=== PATIENT | female | born 1975 | race Caucasian/White ===

== ENCOUNTER 2017-01-13 14:08 | Emergency (ER) | payer BC ==
[2017-01-13] MEDS ORDERED: cloNIDine 0.1 MG Tab PO ONE (14:39)
[2017-01-13] MEDS ORDERED: Ketorolac 60 MG/2 ML SDV IM ONE (14:39)
[2017-01-13] MEDS ORDERED: Morphine 10 MG/ML Syringe IM ONE (15:15)
[2017-01-13 15:36] LABS: CHLORIDE,CL 110 mmol/L (98-110); SODIUM,NA 142 mmol/L (136-146)
--- NOTE | 2017-01-13 16:04 | EDM.PDOC ---
ED HPI GENERAL MEDICAL PROBLEM - General Chief Complaint: Headache Stated Complaint: MIGRAINE Time Seen by Provider: 01/13/17 14:31 Source of Information: Reports: Patient History Limitations: Reports: No limitations - History of Present Illness INITIAL COMMENTS - FREE TEXT/NARRATIVE: History of present illness: [] Patient has a history of high blood pressure and migraine headaches and states she developed a typical migraine headache last night. She states it feels more severe but it feels like a migraine. She denies any fevers or chills , vomiting, sinus congestion or visual changes. Review of systems: As per history of present illness and below otherwise all systems reviewed and negative. Past medical history: As per history of present illness and as reviewed below otherwise noncontributory. Surgical history: As per history of present illness and as reviewed below otherwise noncontributory. Social history: No reported history of drug or alcohol abuse. Family history: As per history of present illness and as reviewed below otherwise noncontributory. Physical exam: General: Well developed, well nourished in NAD HEENT: Atraumatic, normocephalic, pupils reactive, negative for conjunctival pallor or scleral icterus, mucous membranes moist, throat clear, neck supple, nontender, trachea midline. Lungs: Clear to auscultation, breath sounds equal bilaterally, chest nontender. Heart: S1S2, regular, negative for clicks, rubs, or JVD. Abdomen: Soft, nondistended, nontender. Negative for masses or hepatosplenomegaly. Negative for costovertebral tenderness. Pelvis: Stable nontender. Genitourinary: Deferred. Rectal: Deferred. Extremities: Atraumatic, negative for cords or calf pain. Neurovascular unremarkable. Neuro: Awake, alert, oriented. Cranial nerves II through XII unremarkable. Cerebellum unremarkable. Motor and sensory unremarkable throughout. Exam nonfocal. Diagnostics: [] Therapeutics: [] Patient was given Toradol and clonidine to decrease her blood pressure with no relief and asked for morphine. Impression: [] Migraine headache Plan: [] Followup PMD Definitive disposition and diagnosis as appropriate pending reevaluation and review of above. Headache Pain Score (Numeric/FACES): 8 - Related Data Allergies Allergy/AdvReac Type Severity Reaction Status Date / Time venom-honey bee Allergy Anaphylactic Verified 01/13/17 14:30 [bee venom (honey bee)] Shock venom-wasp [Wasp Venom] Allergy Anaphylactic Verified 01/13/17 14:30 Shock Home Meds: Home Meds Verapamil HCl [Verapamil] 180 mg PO DAILY 12/13/13 [History] ARIPiprazole [Aripiprazole] 10 mg PO DAILY 01/13/17 [History] Acetaminophen/Butalbital/Caff [Fioricet 325-50-40 MG] 1 - 2 tab PO Q4H PRN 01/13 [History] ClonazePAM [KlonoPIN] 0.5 mg PO BEDTIME 01/13/17 [History] Cyanocobalamin/FA/Pyridoxine [Folbic Tablet] 1 tab PO DAILY 01/13/17 [History] Ketorolac [Toradol] 10 mg PO BID PRN 01/13/17 [History] Lurasidone HCl [Latuda] 40 mg PO QAM 01/13/17 [History] Metoclopramide [Reglan] 10 mg PO Q6H PRN 01/13/17 [History] Naratriptan HCl 2.5 mg PO ASDIRECTED PRN 01/13/17 [History] Ondansetron [IJP: Ondansetron ODT] 4 mg PO TID PRN 01/13/17 [History] Topiramate 50 mg PO BID 01/13/17 [History] cloNIDine HCl [Catapres] 0.2 mg PO BEDTIME 01/13/17 [History] traZODone 50 mg PO BEDTIME 01/13/17 [History] Past Medical History - Past Health History Medical/Surgical History: Denies Medical/Surgical History Psychiatric History: Reports: Anxiety, Depression, Other (see below) Other Psychiatric History: insomnia - Infectious Disease History Infectious Disease History: Reports: Chicken pox - Past Surgical History Female Surgical History: Reports: Breast reduction, section, Hysterectomy Social & Family History - Family History Family Medical History: Noncontributory - Tobacco Use Smoking Status *Q: Never Smoker Second Hand Smoke Exposure: No - Alcohol Use Days Per Week of Alcohol Use: 7 Number of Drinks Per Day: 1 Total Drinks Per Week: 7 - Recreational Drug Use Recreational Drug Use: No Drug Use in Last 12 Months: No ED ROS GENERAL - Review of Systems Review Of Systems: See Below (See history of present illness) - Physical Exam Exam: See Below (See history of present illness) Course - Vital Signs Last Recorded V/S: Last Vital Signs Temp 36.5 C 01/13/17 14:27 Pulse 83 01/13/17 16:41 Resp 16 01/13/17 16:41 BP 133/61 01/13/17 16:41 Pulse Ox 99 01/13/17 16:41 - Orders/Labs/Meds Labs: Laboratory Tests 01/13/17 Range/Units 15:06 Sodium 142 (136-146) mmol/L Potassium 3.9 (3.5-5.1) mmol/L Chloride 110 (98-110) mmol/L Carbon Dioxide 22 (21-31) mmol/L BUN 14 (6.0-23.0) mg/dL Creatinine 1.0 (0.6-1.5) mg/dL Est Cr Clr Drug Dosing 54.74 mL/min Estimated GFR (MDRD) > 60.0 ml/min Glucose 94 (60-110) mg/dL Calcium 9.7 (8.8-10.8) mg/dL Total Bilirubin 0.2 (0.1-1.5) mg/dL AST 21 (5-40) IU/L ALT 19 (8-54) IU/L Alkaline Phosphatase 96 (40-150) Total Protein 7.4 (6.0-8.0) g/dL Albumin 4.2 (3.5-5.0) g/dL Globulin 3.2 (2.0-3.5) g/dL Albumin/Globulin Ratio 1.3 (1.3-2.8) Meds: Medications Discontinued Medications Generic Name Dose Route Start Last Admin Trade Name [place] PRN Reason Stop Dose Admin Clonidine HCl 0.2 mg 01/13/17 14:39 01/13/17 14:47 Catapres PO 01/13/17 14:40 0.2 mg ONETIME ONE Administration Ketorolac Tromethamine 60 mg 01/13/17 14:39 01/13/17 14:46 Toradol IM 01/13/17 14:40 60 mg ONETIME ONE Administration Morphine Sulfate 6 mg 01/13/17 15:15 01/13/17 15:31 Morphine IM 01/13/17 15:16 6 mg ONETIME ONE Administration Morphine Sulfate 4 mg 01/13/17 16:07 01/13/17 16:28 Morphine IM 01/13/17 16:08 4 mg ONETIME ONE Administration Departure - Departure Time of Disposition: 17:00 Disposition: Home, Self-Care 01 Condition: good Clinical Impression: Headache Qualifiers: Headache type: unspecified Headache chronicity pattern: unspecified pattern Intractability: not intractable Qualified Code(s): R51 - Headache - Discharge Information Forms: ED Department Discharge Additional Instructions: The following information is given to patients seen in the emergency department who are being discharged to home. This information is to outline your options for follow-up care. We provide all patients seen in our emergency department with a follow-up referral. The need for follow-up, as well as the timing and circumstances, are variable depending upon the specifics of your emergency department visit. If you don't have a primary care physician on staff, we will provide you with a referral. We always advise you to contact your personal physician following an emergency department visit to inform them of the circumstance of the visit and for follow-up with them and/or the need for any referrals to a consulting specialist. The emergency department will also refer you to a specialist when appropriate. This referral assures that you have the opportunity for follow-up care with a specialist. All of these measure are taken in an effort to provide you with optimal care, which includes your follow-up. Under all circumstances we always encourage you to contact your private physician who remains a resource for coordinating your care. When calling for follow-up care, please make the office aware that this follow-up is from your recent emergency room visit. If for any reason you are refused follow-up, please contact the [facility] Emergency Department at and asked to speak to the emergency department charge nurse. Take Excedrin Migraine and use ice pack for pain Followup PMD
[2017-01-13] MEDS ORDERED: Morphine 4 MG/ML Syringe IM ONE (16:07)
[2017-01-13 17:16] VITALS: BP 135/76
== END 2017-01-13 17:08 | disposition home or self-care (01) ==
LOC: MW.ED 14:08
DX: R51 Headache (principal); F41.9 Anxiety disorder, unspecified; F32.9 Major depressive disorder, single episode, unspecified; Z90.710 Acquired absence of both cervix and uterus; Z98.890 Other specified postprocedural states; Z79.899 Other long term (current) drug therapy; Z91.030 Bee allergy status
CPT/HCPCS: 36415; 80053; 96372; 99283; A9270; J1885; J2270; 99284

== ENCOUNTER 2017-03-14 20:01 | Emergency (ER) | payer BC ==
--- NOTE | 2017-03-14 20:13 | EDM.PDOC ---
ED HPI GENERAL MEDICAL PROBLEM - General Chief Complaint: Genitourinary Problem Stated Complaint: POSSIBLE KIDNEY INFECTION Time Seen by Provider: 03/14/17 20:12 Source of Information: Reports: Patient - History of Present Illness INITIAL COMMENTS - FREE TEXT/NARRATIVE: HISTORY AND PHYSICAL: History of present illness: She complains of urine frequency and low back discomfort , on exam I can reproduce symptoms with palpation of paraspinous muscles there is mild spasm left greater than right noted no fever nausea vomiting chills sweats She denies injury or trauma no footdrop saddle anesthesia bowel or urine symptoms no radiculopathy Review of systems: As per history of present illness and below otherwise all systems reviewed and negative. Past medical history: As per history of present illness and as reviewed below otherwise noncontributory. Surgical history: As per history of present illness and as reviewed below otherwise noncontributory. Social history: No reported history of drug or alcohol abuse. Family history: As per history of present illness and as reviewed below otherwise noncontributory. Physical exam: HEENT: Atraumatic, normocephalic, pupils reactive, negative for conjunctival pallor or scleral icterus, mucous membranes moist, throat clear, neck supple, nontender, trachea midline. Lungs: Clear to auscultation, breath sounds equal bilaterally, chest nontender. Heart: S1S2, regular, negative for clicks, rubs, or JVD. Abdomen: Soft, nondistended, nontender. Negative for masses or hepatosplenomegaly. Negative for costovertebral tenderness. Pelvis: Stable nontender. Genitourinary: Deferred. Rectal: Deferred. Extremities: Atraumatic, negative for cords or calf pain. Neurovascular unremarkable. Neuro: Awake, alert, oriented. Cranial nerves II through XII unremarkable. Cerebellum unremarkable. Motor and sensory unremarkable throughout. Exam nonfocal. No footdrop saddle anesthesia bowel or urine symptoms Diagnostics: []UA, urine culture Therapeutics: []Tramadol 50 mg by mouth 3 times a day when necessary #30 no refill no driving on medication Impression: Low back pain Paraspinous muscle spasm lumbar spine Definitive disposition and diagnosis as appropriate pending reevaluation and review of above. Left Lower Back Pain Score (Numeric/FACES): 8 - Related Data Allergies Allergy/AdvReac Type Severity Reaction Status Date / Time venom-honey bee Allergy Anaphylactic Verified 03/14/17 20:11 [bee venom (honey bee)] Shock venom-wasp [Wasp Venom] Allergy Anaphylactic Verified 03/14/17 20:11 Shock Home Meds: Home Meds Verapamil HCl [Verapamil] 180 mg PO DAILY 12/13/13 [History] ARIPiprazole [Aripiprazole] 10 mg PO DAILY 01/13/17 [History] Acetaminophen/Butalbital/Caff [Fioricet 325-50-40 MG] 1 - 2 tab PO Q4H PRN 01/13 [History] ClonazePAM [KlonoPIN] 0.5 mg PO BEDTIME 01/13/17 [History] Cyanocobalamin/FA/Pyridoxine [Folbic Tablet] 1 tab PO DAILY 01/13/17 [History] Ketorolac [Toradol] 10 mg PO BID PRN 01/13/17 [History] Lurasidone HCl [Latuda] 40 mg PO QAM 01/13/17 [History] Metoclopramide [Reglan] 10 mg PO Q6H PRN 01/13/17 [History] Naratriptan HCl 2.5 mg PO ASDIRECTED PRN 01/13/17 [History] Ondansetron [IJP: Ondansetron ODT] 4 mg PO TID PRN 01/13/17 [History] Topiramate 50 mg PO BID 01/13/17 [History] cloNIDine HCl [Catapres] 0.2 mg PO BEDTIME 01/13/17 [History] traZODone 50 mg PO BEDTIME 01/13/17 [History] Past Medical History - Past Health History Medical/Surgical History: Denies Medical/Surgical History Psychiatric History: Reports: Anxiety, Depression, Other (See Below) Other Psychiatric History: insomnia - Infectious Disease History Infectious Disease History: Reports: Chicken Pox - Past Surgical History Female Surgical History: Reports: Breast Reduction, Section, Hysterectomy Social & Family History - Family History Family Medical History: Noncontributory - Tobacco Use Smoking Status *Q: Never Smoker Second Hand Smoke Exposure: No - Alcohol Use Days Per Week of Alcohol Use: 7 Number of Drinks Per Day: 1 Total Drinks Per Week: 7 - Recreational Drug Use Recreational Drug Use: No Drug Use in Last 12 Months: No ED ROS GENERAL - Review of Systems Review Of Systems: ROS reveals no pertinent complaints other than HPI. ED EXAM, GENERAL - Physical Exam Exam: See Below Course - Vital Signs Last Recorded V/S: Last Vital Signs Temp 36.2 C 03/14/17 20:11 Pulse 100 03/14/17 20:11 Resp 17 03/14/17 20:11 BP 181/94 H 03/14/17 20:11 Pulse Ox 100 03/14/17 20:11 - Orders/Labs/Meds Orders: Active Orders 24 hr Category Date Time Status CULTURE URINE [RM] Stat Lab 03/14/17 20:06 Received Labs: Laboratory Tests 03/14/17 Range/Units 20:06 Urine Color YELLOW Urine Appearance CLEAR Urine pH 6.0 (5.0-8.0) Ur Specific [place] <= 1.005 (1.001-1.035) Urine Protein NEGATIVE (NEGATIVE) mg/dL Urine Glucose (UA) NEGATIVE (NEGATIVE) mg/dL Urine Ketones NEGATIVE (NEGATIVE) mg/dL Urine Occult Blood NEGATIVE (NEGATIVE) Urine Nitrite NEGATIVE (NEGATIVE) Urine Bilirubin NEGATIVE (NEGATIVE) Urine Urobilinogen 0.2 (<2.0) EU/dL Ur Leukocyte Esterase NEGATIVE (NEGATIVE) Urine RBC 0-2 (0-2/HPF) Urine WBC 0-2 (0-5/HPF) Ur Epithelial Cells OCCASIONAL (NONE-FEW) Urine Bacteria FEW (NEGATIVE) Departure - Departure Time of Disposition: 20:36 Disposition: Home, Self-Care 01 Condition: Good Clinical Impression: Spasm of lumbar paraspinous muscle - Discharge Information Forms: ED Department Discharge Additional Instructions: Medication as prescribed Heat or ice whichever games most benefit 20 minute intervals 3 times daily 7-10 days Return if symptoms persist or worsen No ibuprofen/NSAIDs due to gastric bypass Follow-up with primary care in 2 weeks The following information is given to patients seen in the emergency department who are being discharged to home. This information is to outline your options for follow-up care. We provide all patients seen in our emergency department with a follow-up referral. The need for follow-up, as well as the timing and circumstances, are variable depending upon the specifics of your emergency department visit. If you don't have a primary care physician on staff, we will provide you with a referral. We always advise you to contact your personal physician following an emergency department visit to inform them of the circumstance of the visit and for follow-up with them and/or the need for any referrals to a consulting specialist. The emergency department will also refer you to a specialist when appropriate. This referral assures that you have the opportunity for follow-up care with a specialist. All of these measure are taken in an effort to provide you with optimal care, which includes your follow-up. Under all circumstances we always encourage you to contact your private physician who remains a resource for coordinating your care. When calling for follow-up care, please make the office aware that this follow-up is from your recent emergency room visit. If for any reason you are refused follow-up, please contact the [facility] emergency department at and asked to speak to the emergency department charge nurse. - My Orders Last 24 Hours: My Active Orders 03/14/17 20:06 CULTURE URINE [RM] Stat - Assessment/Plan Last 24 Hours: My Active Orders 03/14/17 20:06 CULTURE URINE [RM] Stat
[2017-03-14 20:56] VITALS: BP 164/71
== END 2017-03-14 20:50 | disposition home or self-care (01) ==
LOC: MW.ED 20:01
DX: M62.830 Muscle spasm of back (principal); F41.9 Anxiety disorder, unspecified; F32.9 Major depressive disorder, single episode, unspecified; Z91.030 Bee allergy status; Z79.899 Other long term (current) drug therapy; Z90.710 Acquired absence of both cervix and uterus
CPT/HCPCS: 81001; 87086; 99282; 99283

== ENCOUNTER 2017-04-14 10:31 | Emergency (ER) | payer BC ==
[2017-04-14] MEDS ORDERED: Sodium Chloride 0.9% 1,000 ML IV ONE (11:01)
[2017-04-14] MEDS ORDERED: LORazepam 2 MG/ML MDV IVPUSH ONE (11:01)
[2017-04-14] MEDS ORDERED: Ketorolac 30 MG/ML SDV IVPUSH ONE (11:01)
[2017-04-14] MEDS ORDERED: Ondansetron 4 MG/2 ML SDV IVPUSH ONE (11:01)
--- NOTE | 2017-04-14 11:04 | EDM.PDOC ---
ED HPI GENERAL MEDICAL PROBLEM - General Chief Complaint: Headache Stated Complaint: HEADACHE Time Seen by Provider: 04/14/17 10:50 Source of Information: Reports: Patient History Limitations: Reports: No Limitations - History of Present Illness INITIAL COMMENTS - FREE TEXT/NARRATIVE: History of present illness: [41-year-old female comes in complaining of migraine headache. Patient has long- standing history of migraines and states often daily migraines. Patient indicates this one was not enough to seek additional treatment would qualify in the top 10 but was not the worst headache she ever had.] Review of systems: As per history of present illness and below otherwise all systems reviewed and negative. Past medical history: As per history of present illness and as reviewed below otherwise noncontributory. Surgical history: As per history of present illness and as reviewed below otherwise noncontributory. Social history: No reported history of drug or alcohol abuse. Family history: As per history of present illness and as reviewed below otherwise noncontributory. Physical exam: HEENT: Atraumatic, normocephalic, pupils reactive, negative for conjunctival pallor or scleral icterus, mucous membranes moist, throat clear, neck supple, nontender, trachea midline. Lungs: Clear to auscultation, breath sounds equal bilaterally, chest nontender. Heart: S1S2, regular, negative for clicks, rubs, or JVD. Abdomen: Soft, nondistended, nontender. Negative for masses or hepatosplenomegaly. Negative for costovertebral tenderness. Pelvis: Stable nontender. Genitourinary: Deferred. Rectal: Deferred. Extremities: Atraumatic, negative for cords or calf pain. Neurovascular unremarkable. Neuro: Awake, alert, oriented. Cranial nerves II through XII unremarkable. Cerebellum unremarkable. Motor and sensory unremarkable throughout. Exam nonfocal. Global assessment is benign save the subjective complaint as noted in history of present illness and some mild photosensitivity Diagnostics: [CBC, CMP] Therapeutics: [IV fluid, oxygen 2 L, dark room, Zofran, Toradol,] Impression: [Migraine headache] Plan: [Discharge to home] Definitive disposition and diagnosis as appropriate pending reevaluation and review of above. headache Pain Score (Numeric/FACES): 8 - Related Data Allergies Allergy/AdvReac Type Severity Reaction Status Date / Time venom-honey bee Allergy Anaphylactic Verified 04/14/17 10:55 [bee venom (honey bee)] Shock venom-wasp [Wasp Venom] Allergy Anaphylactic Verified 04/14/17 10:55 Shock Home Meds: Home Meds Verapamil HCl [Verapamil] 180 mg PO DAILY 12/13/13 [History] Acetaminophen/Butalbital/Caff [Fioricet 325-50-40 MG] 1 - 2 tab PO Q4H PRN 01/13 [History] ClonazePAM [KlonoPIN] 0.5 mg PO BEDTIME 01/13/17 [History] Cyanocobalamin/FA/Pyridoxine [Folbic Tablet] 1 tab PO DAILY 01/13/17 [History] Ketorolac [Toradol] 10 mg PO BID PRN 01/13/17 [History] Naratriptan HCl 2.5 mg PO BID PRN 01/13/17 [History] Ondansetron [IJP: Ondansetron ODT] 4 mg PO TID PRN 01/13/17 [History] cloNIDine HCl [Catapres] 0.2 mg PO BEDTIME 01/13/17 [History] traZODone 50 mg PO BEDTIME 01/13/17 [History] ARIPiprazole [Abilify] 15 mg PO DAILY 03/14/17 [History] Past Medical History - Past Health History Medical/Surgical History: Denies Medical/Surgical History HEENT History: Reports: None Cardiovascular History: Reports: None Respiratory History: Reports: None Gastrointestinal History: Reports: None Genitourinary History: Reports: None 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: Musculoskeletal History: Reports: None Neurological History: Reports: None Psychiatric History: Reports: Anxiety, Depression, Other (See Below) Other Psychiatric History: insomnia Endocrine/Metabolic History: Reports: None Hematologic History: Reports: None Immunologic History: Reports: None Oncologic (Cancer) History: Reports: None Dermatologic History: Reports: None - Infectious Disease History Infectious Disease History: Reports: Chicken Pox - Past Surgical History Head Surgeries/Procedures: Reports: None HEENT Surgical History: Reports: None Cardiovascular Surgical History: Reports: None Respiratory Surgical History: Reports: None GI Surgical History: Reports: Other (See Below) Other GI Surgeries/Procedures: gastric bypass Female Surgical History: Reports: Breast Reduction, Section, Hysterectomy Endocrine Surgical History: Reports: None Neurological Surgical History: Reports: None Musculoskeletal Surgical History: Reports: Shoulder Surgery Oncologic Surgical History: Reports: None Social & Family History - Family History Family Medical History: Noncontributory - Tobacco Use Smoking Status *Q: Never Smoker Second Hand Smoke Exposure: No - Caffeine Use Caffeine Use: Reports: Tea - Alcohol Use Days Per Week of Alcohol Use: 7 Number of Drinks Per Day: 1 Total Drinks Per Week: 7 - Recreational Drug Use Recreational Drug Use: No Drug Use in Last 12 Months: No ED ROS GENERAL - Review of Systems Review Of Systems: See Below (See history of present illness) - Physical Exam Exam: See Below (History of present illness) Course - Vital Signs Last Recorded V/S: Last Vital Signs Temp 36.2 C 04/14/17 10:53 Pulse 78 04/14/17 12:11 Resp 20 04/14/17 12:11 BP 145/87 H 04/14/17 12:11 Pulse Ox 100 04/14/17 12:11 - Orders/Labs/Meds Labs: Laboratory Tests 04/14/17 04/14/17 Range/Units 11:04 11:04 WBC 8.73 (4.0-11.0) K/uL RBC 4.01 L (4.30-5.90) M/uL Hgb 12.2 (12.0-16.0) g/dL Hct 37.3 (36.0-46.0) % MCV 93.0 (80.0-98.0) fL MCH 30.4 (27.0-32.0) pg MCHC 32.7 (31.0-37.0) g/dL RDW Std Deviation 44.6 (28.0-62.0) fl RDW Coeff of Jeanne 13 (11.0-15.0) % Plt Count 305 (150-400) K/uL MPV 11.70 (7.40-12.00) fL Neut % (Auto) 67.7 (48.0-80.0) % Lymph % (Auto) 23.1 (16.0-40.0) % [place] % (Auto) 6.8 (0.0-15.0) % Eos % (Auto) 2.2 (0.0-7.0) % Baso % (Auto) 0.2 (0.0-1.5) % Neut # (Auto) 5.9 H (1.4-5.7) K/uL Lymph # (Auto) 2.0 (0.6-2.4) K/uL [place] # (Auto) 0.6 (0.0-0.8) K/uL Eos # (Auto) 0.2 (0.0-0.7) K/uL Baso # (Auto) 0.0 (0.0-0.1) K/uL Nucleated RBC % 0.0 /100WBC Nucleated RBCs # 0 K/uL Sodium 141 (136-146) mmol/L Potassium 4.7 (3.5-5.1) mmol/L Chloride 104 (98-110) mmol/L Carbon Dioxide 29 (21-31) mmol/L BUN 17 (6.0-23.0) mg/dL Creatinine 0.8 (0.6-1.5) mg/dL Est Cr Clr Drug Dosing 68.50 mL/min Estimated GFR (MDRD) > 60.0 ml/min Glucose 88 (60-110) mg/dL Calcium 9.3 (8.8-10.8) mg/dL Total Bilirubin 0.2 (0.1-1.5) mg/dL AST 33 (5-40) IU/L ALT 18 (8-54) IU/L Alkaline Phosphatase 88 (40-150) Total Protein 7.5 (6.0-8.0) g/dL Albumin 4.0 (3.5-5.0) g/dL Globulin 3.5 (2.0-3.5) g/dL Albumin/Globulin Ratio 1.1 L (1.3-2.8) Meds: Medications Discontinued Medications Generic Name Dose Route Start Last Admin Trade Name Russellq PRN Reason Stop Dose Admin Fentanyl 50 mcg 04/14/17 11:59 04/14/17 12:08 Sublimaze IVPUSH 04/14/17 12:00 50 mcg ONETIME ONE Administration Sodium Chloride 1,000 mls @ 999 mls/hr 04/14/17 11:01 04/14/17 11:06 Normal Saline IV 04/14/17 12:01 999 mls/hr STAT ONE Administration Ketorolac Tromethamine 30 mg 04/14/17 11:01 04/14/17 11:10 Toradol IVPUSH 04/14/17 11:02 30 mg ONETIME ONE Administration Lorazepam 1 mg 04/14/17 11:01 04/14/17 11:11 Ativan IVPUSH 04/14/17 11:02 1 mg ONETIME ONE Administration Ondansetron HCl 8 mg 04/14/17 11:01 04/14/17 11:06 Zofran IVPUSH 04/14/17 11:02 8 mg ONETIME ONE Administration Departure - Departure Time of Disposition: 12:29 Disposition: Home, Self-Care 01 Condition: Good Clinical Impression: Migraine - Discharge Information Instructions: Pain Medicine Instructions, [id number], Recurrent Migraine Headache, [id number] Forms: ED Department Discharge Additional Instructions: The following information is given to patients seen in the emergency department who are being discharged to home. This information is to outline your options for follow-up care. We provide all patients seen in our emergency department with a follow-up referral. The need for follow-up, as well as the timing and circumstances, are variable depending upon the specifics of your emergency department visit. If you don't have a primary care physician on staff, we will provide you with a referral. We always advise you to contact your personal physician following an emergency department visit to inform them of the circumstance of the visit and for follow-up with them and/or the need for any referrals to a consulting specialist. The emergency department will also refer you to a specialist when appropriate. This referral assures that you have the opportunity for follow-up care with a specialist. All of these measure are taken in an effort to provide you with optimal care, which includes your follow-up. Under all circumstances we always encourage you to contact your private physician who remains a resource for coordinating your care. When calling for follow-up care, please make the office aware that this follow-up is from your recent emergency room visit. If for any reason you are refused follow-up, please contact the [facility] Emergency Department at and asked to speak to the emergency department charge nurse. Take migraine medication as directed Follow-up with your neurologist as discussed Return to ED as needed as discussed
[2017-04-14 11:38] LABS: CHLORIDE,CL 104 mmol/L (98-110); SODIUM,NA 141 mmol/L (136-146)
[2017-04-14] MEDS ORDERED: fentaNYL 100 MCG/2 ML SDV IVPUSH ONE (11:59)
[2017-04-14 14:10] VITALS: BP 150/77
== END 2017-04-14 13:12 | disposition home or self-care (01) ==
LOC: MW.ED 10:31
DX: G43.909 Migraine, unspecified, not intractable, without status migrainosus (principal); F41.9 Anxiety disorder, unspecified; F32.9 Major depressive disorder, single episode, unspecified; Z79.899 Other long term (current) drug therapy; Z91.030 Bee allergy status; Z90.710 Acquired absence of both cervix and uterus
CPT/HCPCS: 36415; 80053; 85025; 96361; 96374; 96375; 99283; J1885; J2060; J2405; J3010; J7040; 99284

== ENCOUNTER 2017-05-13 10:29 | Emergency (ER) | payer BC ==
[2017-05-13] MEDS ORDERED: Ketorolac 30 MG/ML SDV IVPUSH ONE (10:50)
[2017-05-13] MEDS ORDERED: LORazepam 2 MG/ML MDV IVPUSH ONE (10:50)
[2017-05-13] MEDS ORDERED: Sodium Chloride 0.9% 1,000 ML IV ONE (10:50)
[2017-05-13] MEDS ORDERED: Ondansetron 4 MG/2 ML SDV IVPUSH ONE ×2 (10:50→11:56)
--- NOTE | 2017-05-13 10:56 | EDM.PDOC ---
ED HPI GENERAL MEDICAL PROBLEM - General Chief Complaint: Headache Stated Complaint: HEADACHE Time Seen by Provider: 05/13/17 10:30 Source of Information: Reports: Patient History Limitations: Reports: No Limitations - History of Present Illness INITIAL COMMENTS - FREE TEXT/NARRATIVE: History of present illness: [41-year-old female coming in complaining of migraine headache. Patient has a known history of migraines and indicates this is a average migraine for her. Patient has chronic migraines and usually can control them at home but sporadically she requires more intervention than what she has available to her in her home environment. This patient is known to me have treated her with migraine cocktail here before that and it was of benefit and she is requesting a repeat of the same plan of care.] Review of systems: As per history of present illness and below otherwise all systems reviewed and negative. Past medical history: As per history of present illness and as reviewed below otherwise noncontributory. Surgical history: As per history of present illness and as reviewed below otherwise noncontributory. Social history: No reported history of drug or alcohol abuse. Family history: As per history of present illness and as reviewed below otherwise noncontributory. Physical exam: HEENT: Atraumatic, normocephalic, pupils reactive, negative for conjunctival pallor or scleral icterus, mucous membranes moist, throat clear, neck supple, nontender, trachea midline. Lungs: Clear to auscultation, breath sounds equal bilaterally, chest nontender. Heart: S1S2, regular, negative for clicks, rubs, or JVD. Abdomen: Soft, nondistended, nontender. Negative for masses or hepatosplenomegaly. Negative for costovertebral tenderness. Pelvis: Stable nontender. Genitourinary: Deferred. Rectal: Deferred. Extremities: Atraumatic, negative for cords or calf pain. Neurovascular unremarkable. Neuro: Awake, alert, oriented. Cranial nerves II through XII unremarkable. Cerebellum unremarkable. Motor and sensory unremarkable throughout. Exam nonfocal. Global assessment is benign save the subjective complaint of migraine headache as noted in the history of present illness. Patient indicated that headache was significantly improved and was going to go home and go to bed. Diagnostics: [] Therapeutics: [Oxygen, IV fluid, Toradol, Ativan,] Impression: [Migraine headache] Plan: [Return to routine migraine maintenance follow-up with neurology] Definitive disposition and diagnosis as appropriate pending reevaluation and review of above. Right Head Pain Score (Numeric/FACES): 8 - Related Data Allergies Allergy/AdvReac Type Severity Reaction Status Date / Time venom-honey bee Allergy Anaphylactic Verified 05/13/17 10:48 [bee venom (honey bee)] Shock venom-wasp [Wasp Venom] Allergy Anaphylactic Verified 05/13/17 10:48 Shock Home Meds: Home Meds Verapamil HCl [Verapamil] 180 mg PO DAILY 12/13/13 [History] Acetaminophen/Butalbital/Caff [Fioricet 325-50-40 MG] 1 - 2 tab PO Q4H PRN 01/13 [History] ClonazePAM [KlonoPIN] 0.5 mg PO BEDTIME 01/13/17 [History] Cyanocobalamin/FA/Pyridoxine [Folbic Tablet] 1 tab PO DAILY 01/13/17 [History] Ketorolac [Toradol] 10 mg PO BID PRN 01/13/17 [History] Naratriptan HCl 2.5 mg PO BID PRN 01/13/17 [History] Ondansetron [IJP: Ondansetron ODT] 4 mg PO TID PRN 01/13/17 [History] cloNIDine HCl [Catapres] 0.2 mg PO BEDTIME 01/13/17 [History] traZODone 50 mg PO BEDTIME 01/13/17 [History] ARIPiprazole [Abilify] 15 mg PO DAILY 03/14/17 [History] Desvenlafaxine Succinate [Pristiq ER] 50 mg PO DAILY 05/13/17 [History] Past Medical History - Past Health History Medical/Surgical History: Denies Medical/Surgical History HEENT History: Reports: None Cardiovascular History: Reports: None Respiratory History: Reports: None Gastrointestinal History: Reports: None Genitourinary History: Reports: None 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: Musculoskeletal History: Reports: None Neurological History: Reports: None Psychiatric History: Reports: Anxiety, Depression, Other (See Below) Other Psychiatric History: insomnia Endocrine/Metabolic History: Reports: None Hematologic History: Reports: None Immunologic History: Reports: None Oncologic (Cancer) History: Reports: None Dermatologic History: Reports: None - Infectious Disease History Infectious Disease History: Reports: Chicken Pox - Past Surgical History Head Surgeries/Procedures: Reports: None HEENT Surgical History: Reports: None Cardiovascular Surgical History: Reports: None Respiratory Surgical History: Reports: None GI Surgical History: Reports: Other (See Below) Other GI Surgeries/Procedures: gastric bypass Female Surgical History: Reports: Breast Reduction, Section, Hysterectomy Endocrine Surgical History: Reports: None Neurological Surgical History: Reports: None Musculoskeletal Surgical History: Reports: Shoulder Surgery Oncologic Surgical History: Reports: None Social & Family History - Family History Family Medical History: Noncontributory - Tobacco Use Smoking Status *Q: Never Smoker Second Hand Smoke Exposure: No - Caffeine Use Caffeine Use: Reports: Tea - Alcohol Use Days Per Week of Alcohol Use: 7 Number of Drinks Per Day: 1 Total Drinks Per Week: 7 - Recreational Drug Use Recreational Drug Use: No Drug Use in Last 12 Months: No ED ROS GENERAL - Review of Systems Review Of Systems: See Below (The history of present illness) - Physical Exam Exam: See Below (See history of present illness) Course - Vital Signs Last Recorded V/S: Last Vital Signs Temp 36.4 C 05/13/17 10:46 Pulse 82 05/13/17 10:46 Resp 18 05/13/17 10:46 BP 180/94 H 05/13/17 10:46 Pulse Ox 98 05/13/17 10:46 - Orders/Labs/Meds Meds: Medications Discontinued Medications Generic Name Dose Route Start Last Admin Trade Name [place] PRN Reason Stop Dose Admin Fentanyl 50 mcg 05/13/17 11:56 05/13/17 12:03 Sublimaze IVPUSH 05/13/17 11:57 50 mcg ONETIME ONE Administration Sodium Chloride 1,000 mls @ 999 mls/hr 05/13/17 10:50 05/13/17 11:06 Normal Saline IV 05/13/17 11:50 999 mls/hr STAT ONE Administration Ketorolac Tromethamine 30 mg 05/13/17 10:50 05/13/17 11:07 Toradol IVPUSH 05/13/17 10:51 30 mg ONETIME ONE Administration Lorazepam 1 mg 05/13/17 10:50 05/13/17 11:07 Ativan IVPUSH 05/13/17 10:51 1 mg ONETIME ONE Administration Ondansetron HCl 8 mg 05/13/17 10:50 05/13/17 11:06 Zofran IVPUSH 05/13/17 10:51 8 mg ONETIME ONE Administration Ondansetron HCl 4 mg 05/13/17 11:56 05/13/17 12:03 Zofran IVPUSH 05/13/17 11:57 4 mg ONETIME ONE Administration Departure - Departure Time of Disposition: 12:16 Disposition: Home, Self-Care 01 Condition: Good Clinical Impression: Migraine Qualifiers: Migraine type: with aura Status migrainosus presence: without status migrainosus Intractability: not intractable Qualified Code(s): G43.109 - Migraine with aura, not intractable, without status migrainosus - Discharge Information Referrals: Ana Pedro NP [Primary Care Provider] - Forms: ED Department Discharge Additional Instructions: The following information is given to patients seen in the emergency department who are being discharged to home. This information is to outline your options for follow-up care. We provide all patients seen in our emergency department with a follow-up referral. The need for follow-up, as well as the timing and circumstances, are variable depending upon the specifics of your emergency department visit. If you don't have a primary care physician on staff, we will provide you with a referral. We always advise you to contact your personal physician following an emergency department visit to inform them of the circumstance of the visit and for follow-up with them and/or the need for any referrals to a consulting specialist. The emergency department will also refer you to a specialist when appropriate. This referral assures that you have the opportunity for follow-up care with a specialist. All of these measure are taken in an effort to provide you with optimal care, which includes your follow-up. Under all circumstances we always encourage you to contact your private physician who remains a resource for coordinating your care. When calling for follow-up care, please make the office aware that this follow-up is from your recent emergency room visit. If for any reason you are refused follow-up, please contact the [facility] Emergency Department at and asked to speak to the emergency department charge nurse. Take your routine migraine medication at home as discussed Follow-up with neurology in 1-2 days Return to ED as needed as discussed
[2017-05-13] MEDS ORDERED: fentaNYL 100 MCG/2 ML SDV IVPUSH ONE (11:56)
[2017-05-13 12:59] VITALS: BP 193/98
== END 2017-05-13 12:54 | disposition home or self-care (01) ==
LOC: MW.ED 10:29
DX: G43.109 Migraine with aura, not intractable, without status migrainosus (principal); F32.9 Major depressive disorder, single episode, unspecified; Z98.84 Bariatric surgery status; Z90.710 Acquired absence of both cervix and uterus; Z98.890 Other specified postprocedural states; Z79.899 Other long term (current) drug therapy; Z91.030 Bee allergy status
CPT/HCPCS: 96361; 96374; 96375; 99284; J1885; J2060; J2405; J3010; J7040; 99282

== ENCOUNTER 2017-08-15 09:43 | Emergency (ER) | payer BC ==
[2017-08-15] MEDS ORDERED: cefTRIAXone 1,000 MG in Lidocaine 1% 4 ML IM ONE (10:28)
--- NOTE | 2017-08-15 10:35 | EDM.PDOC ---
ED HPI GENERAL MEDICAL PROBLEM - General Chief Complaint: Genitourinary Problem Stated Complaint: LOWER BACK PAIN Time Seen by Provider: 08/15/17 10:10 Source of Information: Reports: Patient History Limitations: Reports: No Limitations - History of Present Illness INITIAL COMMENTS - FREE TEXT/NARRATIVE: HISTORY AND PHYSICAL: History of present illness: [Pt comes to the ER complaining of progressively darkening urine for the past week, and urinary frequency and low back discomfort since 0300 today. She has a history of "kidney infections" and these symptoms feel similar to previous. Noticed a foul odor to her urine over the past couple of days. No urinary hesitancy or burning with urination. She describes her low back pain is an aching sensation. Mild lower abdominal discomfort, otherwise no pain. Denies fever and chills, recent illness and infection. No change in appetite. Denies swelling to her feet and lower legs. No nausea or vomiting. No change in bowels. Has no other complaints or concerns at this time. She follows regularly with Giuliana Pedro NP. Has not taken any medications for her symptoms.] Review of systems: As per history of present illness and below otherwise all systems reviewed and negative. Past medical history: As per history of present illness and as reviewed below otherwise noncontributory. Surgical history: As per history of present illness and as reviewed below otherwise noncontributory. Social history: No reported history of drug or alcohol abuse. Family history: As per history of present illness and as reviewed below otherwise noncontributory. Physical exam: Gen.: Well-developed, well-nourished female in no acute distress. HEENT: Atraumatic, normocephalic. Oral mucous membranes are pink and moist. Lungs: Clear to auscultation, breath sounds equal bilaterally. Heart: S1S2, regular rate and rhythm. Abdomen: Bowel sounds are normoactive throughout. Abdomen is soft and nondistended. Is tender with palpation only over suprapubic area. No masses guarding or rebound. Negative for costovertebral tenderness. Pelvis: Stable nontender. Genitourinary: Deferred. Rectal: Deferred. Extremities: Atraumatic. No cyanosis or edema to feet or lower legs. No tenderness with palpation. Neurovascular unremarkable. Neuro: Awake, alert, oriented. Motor and sensory unremarkable throughout. Exam nonfocal. Psych: Alert oriented pleasant and conversational. Diagnostics: [UA, urine culture] Therapeutics: [Rocephin 1 gram IM] Impression: [UTI] Plan: [Urine is dark brown in color. + nitrites. 3+ bacteria, 2-3 white blood cells, large amount of blood, 15 ketones. Rx written for Macrobid (#14) si po BID 0 RF's. Rocephin 1 g given IM in the ER. Increase water intake. Strict return precautions are reviewed with the patient in detail. She verbalized understanding of today's discussion. ] Definitive disposition and diagnosis as appropriate pending reevaluation and review of above. Left Flank Pain Score (Numeric/FACES): 6 - Related Data Allergies Allergy/AdvReac Type Severity Reaction Status Date / Time venom-honey bee Allergy Anaphylactic Verified 05/13/17 10:48 [bee venom (honey bee)] Shock venom-wasp [Wasp Venom] Allergy Anaphylactic Verified 05/13/17 10:48 Shock Home Meds: Home Meds Verapamil HCl [Verapamil] 180 mg PO DAILY 12/13/13 [History] Acetaminophen/Butalbital/Caff [Fioricet 325-50-40 MG] 1 - 2 tab PO Q4H PRN 01/13 [History] ClonazePAM [KlonoPIN] 0.5 mg PO BEDTIME 01/13/17 [History] Cyanocobalamin/FA/Pyridoxine [Folbic Tablet] 1 tab PO DAILY 01/13/17 [History] Ketorolac [Toradol] 10 mg PO BID PRN 01/13/17 [History] Naratriptan HCl 2.5 mg PO BID PRN 01/13/17 [History] Ondansetron [IJP: Ondansetron ODT] 4 mg PO TID PRN 01/13/17 [History] cloNIDine HCl [Catapres] 0.2 mg PO BEDTIME 01/13/17 [History] traZODone 50 mg PO BEDTIME 01/13/17 [History] Desvenlafaxine Succinate [Pristiq ER] 50 mg PO DAILY 05/13/17 [History] Past Medical History - Past Health History Medical/Surgical History: Denies Medical/Surgical History HEENT History: Reports: None Cardiovascular History: Reports: None Respiratory History: Reports: None Gastrointestinal History: Reports: None Genitourinary History: Reports: None 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: Musculoskeletal History: Reports: None Neurological History: Reports: None Psychiatric History: Reports: Anxiety, Depression, Other (See Below) Other Psychiatric History: insomnia Endocrine/Metabolic History: Reports: None Hematologic History: Reports: None Immunologic History: Reports: None Oncologic (Cancer) History: Reports: None Dermatologic History: Reports: None - Infectious Disease History Infectious Disease History: Reports: Chicken Pox - Past Surgical History Head Surgeries/Procedures: Reports: None HEENT Surgical History: Reports: None Cardiovascular Surgical History: Reports: None Respiratory Surgical History: Reports: None GI Surgical History: Reports: Other (See Below) Other GI Surgeries/Procedures: gastric bypass Female Surgical History: Reports: Breast Reduction, Section, Hysterectomy Endocrine Surgical History: Reports: None Neurological Surgical History: Reports: None Musculoskeletal Surgical History: Reports: Shoulder Surgery Oncologic Surgical History: Reports: None Social & Family History - Family History Family Medical History: Noncontributory - Tobacco Use Smoking Status *Q: Never Smoker Second Hand Smoke Exposure: No - Caffeine Use Caffeine Use: Reports: None - Alcohol Use Days Per Week of Alcohol Use: 7 Number of Drinks Per Day: 1 Total Drinks Per Week: 7 - Recreational Drug Use Recreational Drug Use: No Drug Use in Last 12 Months: No ED ROS GENERAL - Review of Systems Review Of Systems: ROS reveals no pertinent complaints other than HPI. ED EXAM, RENAL/ - Physical Exam Exam: See Below Course - Vital Signs Last Recorded V/S: Last Vital Signs Temp 97.5 F 08/15/17 10:06 Pulse 90 08/15/17 10:06 Resp 18 08/15/17 10:06 BP 161/91 H 08/15/17 10:06 Pulse Ox 98 08/15/17 10:06 - Orders/Labs/Meds Orders: Active Orders 24 hr Category Date Time Status CULTURE URINE [RM] Stat Lab 08/15/17 10:23 Uncollected Labs: Laboratory Tests 08/15/17 Range/Units 10:10 Urine Color BROWN Urine Appearance CLOUDY Urine pH 6.5 (5.0-8.0) Ur Specific [place] >= 1.030 (1.001-1.035) Urine Protein 100 (NEGATIVE) mg/dL Urine Glucose (UA) NEGATIVE (NEGATIVE) mg/dL Urine Ketones 15 H (NEGATIVE) mg/dL Urine Occult Blood LARGE H (NEGATIVE) Urine Nitrite POSITIVE H (NEGATIVE) Urine Bilirubin MODERATE H (NEGATIVE) Urine Ictotest NEGATIVE Urine Urobilinogen 1.0 (<2.0) EU/dL Ur Leukocyte Esterase NEGATIVE (NEGATIVE) Urine RBC TOO NUMBEROUS TO CT H (0-2/HPF) Urine WBC 2-3 (0-5/HPF) Ur Epithelial Cells MODERATE (NONE-FEW) Urine Bacteria 3+ H (NEGATIVE) Urine Mucus MODERATE (NONE-MOD) Meds: Medications Discontinued Medications Generic Name Dose Route Start Last Admin Trade Name Freq PRN Reason Stop Dose Admin Ceftriaxone Sodium 1,000 mg/ 4 mls @ 4 mls/sec 08/15/17 10:28 Lidocaine HCl IM 08/15/17 10:29 ONETIME ONE Departure - Departure Time of Disposition: 10:35 Disposition: Home, Self-Care 01 Condition: Good Clinical Impression: UTI (urinary tract infection) - Discharge Information Referrals: Ana Pedro [facility] [Primary Care Provider] - Additional Instructions: The following information is given to patients seen in the emergency department who are being discharged to home. This information is to outline your options for follow-up care. We provide all patients seen in our emergency department with a follow-up referral. The need for follow-up, as well as the timing and circumstances, are variable depending upon the specifics of your emergency department visit. If you don't have a primary care physician on staff, we will provide you with a referral. We always advise you to contact your personal physician following an emergency department visit to inform them of the circumstance of the visit and for follow-up with them and/or the need for any referrals to a consulting specialist. The emergency department will also refer you to a specialist when appropriate. This referral assures that you have the opportunity for follow-up care with a specialist. All of these measure are taken in an effort to provide you with optimal care, which includes your follow-up. Under all circumstances we always encourage you to contact your private physician who remains a resource for coordinating your care. When calling for follow-up care, please make the office aware that this follow-up is from your recent emergency room visit. If for any reason you are refused follow-up, please contact the [facility] emergency department at and asked to speak to the emergency department charge nurse. [facility] [address] [place] [id number] Follow-up with her local primary care provider or at the clinic listed above in the next 4-5 days. Take antibiotics as prescribed. Increase water intake. Return to ER as needed as discussed. - My Orders Last 24 Hours: My Active Orders 08/15/17 10:23 CULTURE URINE [RM] Stat - Assessment/Plan Last 24 Hours: My Active Orders 08/15/17 10:23 CULTURE URINE [RM] Stat
[2017-08-15 10:58] VITALS: BP 153/92
== END 2017-08-15 10:59 | disposition home or self-care (01) ==
LOC: MW.ED 09:43
DX: N39.0 Urinary tract infection, site not specified (principal); Z91.030 Bee allergy status; Z79.899 Other long term (current) drug therapy
CPT/HCPCS: 81001; 87086; 96372; 99284; J0696; 99283

== ENCOUNTER 2017-08-17 10:24 | Emergency (ER) | payer BC ==
[2017-08-17] MEDS ORDERED: Sodium Chloride 0.9% 1,000 ML IV ONE (10:29)
[2017-08-17] MEDS ORDERED: Ketorolac 30 MG/ML SDV IVPUSH ONE (10:40)
[2017-08-17] MEDS ORDERED: Ondansetron 4 MG/2 ML SDV IVPUSH ONE (10:40)
--- NOTE | 2017-08-17 11:05 | EDM.PDOC ---
ED HPI GENERAL MEDICAL PROBLEM - General Chief Complaint: Genitourinary Problem Stated Complaint: POSSIBLE KIDNEY INFECTION Time Seen by Provider: 08/17/17 10:45 Source of Information: Reports: Patient History Limitations: Reports: No Limitations - History of Present Illness INITIAL COMMENTS - FREE TEXT/NARRATIVE: HISTORY AND PHYSICAL: History of present illness: [Pt comes to the emergency room complaining of body aches and nausea which began early this morning. She was seen in the ER on August 15 and diagnosed with urinary tract infection and began treatment with Macrobid. She also received 1 g of Rocephin IM. She feels as though her urinary symptoms has improved slightly but overall she's feeling much worse with headaches, body aches, fever and chills. She did not check her temperature at home. She's had some nausea but no vomiting. Mild lower abdominal discomfort continues but she has not experienced any new abdominal pain. No low back pain. No swelling to her feet or lower legs. No other complaints or concerns at this time. Had influenza shot this year. His] Review of systems: As per history of present illness and below otherwise all systems reviewed and negative. Past medical history: As per history of present illness and as reviewed below otherwise noncontributory. Surgical history: As per history of present illness and as reviewed below otherwise noncontributory. Social history: No reported history of drug or alcohol abuse. Family history: As per history of present illness and as reviewed below otherwise noncontributory. Physical exam: HEENT: Atraumatic, normocephalic. Oral mucous membranes are pink and moist. Neck supple, no lymphadenopathy. Lungs: Clear to auscultation, breath sounds equal bilaterally. Heart: S1S2, regular rate and rhythm. Abdomen: Bowel sounds are normoactive throughout. Soft, nondistended, nontender. Negative for masses, guarding and rebound. Pelvis: Stable nontender. Genitourinary: Deferred. Rectal: Deferred. Extremities: Atraumatic, negative for cords or calf pain. No swelling or edema to feet or lower legs. Neurovascular unremarkable. Neuro: Awake, alert, oriented. Motor and sensory unremarkable throughout. Exam nonfocal. Diagnostics: [CBC, CMP, UA, lactic acid, blood cultures x 2] Therapeutics: [1 liter NS, Toradol 30mg IV, Zofran 4mg IV] Impression: [UTI, resolving Viral illness] Plan: [Discussed with patient that her lab results are completely normal and her UTI. He resolving. We discussed that it is likely that she has caught a viral illness and is suffering those symptoms. Recommend pushing fluids, getting plenty of rest, and managing symptoms with Tylenol and ibuprofen, and with Zofran that she has at home. She is in agreement with today's plan. Strict return precautions are reviewed with the patient.] Definitive disposition and diagnosis as appropriate pending reevaluation and review of above. left flank Pain Score (Numeric/FACES): 7 - Related Data Allergies Allergy/AdvReac Type Severity Reaction Status Date / Time venom-honey bee Allergy Anaphylactic Verified 08/17/17 10:25 [bee venom (honey bee)] Shock venom-wasp [Wasp Venom] Allergy Anaphylactic Verified 08/17/17 10:25 Shock Home Meds: Home Meds Verapamil HCl [Verapamil] 180 mg PO DAILY 12/13/13 [History] Acetaminophen/Butalbital/Caff [Fioricet 325-50-40 MG] 1 - 2 tab PO Q4H PRN 01/13 [History] ClonazePAM [KlonoPIN] 0.5 mg PO BEDTIME 01/13/17 [History] Cyanocobalamin/FA/Pyridoxine [Folbic Tablet] 1 tab PO DAILY 01/13/17 [History] Ketorolac [Toradol] 10 mg PO BID PRN 01/13/17 [History] Naratriptan HCl 2.5 mg PO BID PRN 01/13/17 [History] Ondansetron [IJP: Ondansetron ODT] 4 mg PO TID PRN 01/13/17 [History] cloNIDine HCl [Catapres] 0.2 mg PO BEDTIME 01/13/17 [History] traZODone 50 mg PO BEDTIME 01/13/17 [History] Desvenlafaxine Succinate [Pristiq ER] 50 mg PO DAILY 05/13/17 [History] Past Medical History - Past Health History Medical/Surgical History: Denies Medical/Surgical History HEENT History: Reports: None Cardiovascular History: Reports: Hypertension Respiratory History: Reports: None Gastrointestinal History: Reports: None Genitourinary History: Reports: None 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: Musculoskeletal History: Reports: None Neurological History: Reports: Migraines Psychiatric History: Reports: Anxiety, Depression, Other (See Below) Other Psychiatric History: insomnia Endocrine/Metabolic History: Reports: None Hematologic History: Reports: None Immunologic History: Reports: None Oncologic (Cancer) History: Reports: None Dermatologic History: Reports: None - Infectious Disease History Infectious Disease History: Reports: Chicken Pox - Past Surgical History Head Surgeries/Procedures: Reports: None HEENT Surgical History: Reports: None Cardiovascular Surgical History: Reports: None Respiratory Surgical History: Reports: None GI Surgical History: Reports: Other (See Below) Other GI Surgeries/Procedures: gastric bypass Female Surgical History: Reports: Breast Reduction, Section, Hysterectomy Endocrine Surgical History: Reports: None Neurological Surgical History: Reports: None Musculoskeletal Surgical History: Reports: Shoulder Surgery Oncologic Surgical History: Reports: None Social & Family History - Family History Family Medical History: Noncontributory - Tobacco Use Smoking Status *Q: Never Smoker Second Hand Smoke Exposure: No - Caffeine Use Caffeine Use: Reports: None - Alcohol Use Days Per Week of Alcohol Use: 7 Number of Drinks Per Day: 1 Total Drinks Per Week: 7 - Recreational Drug Use Recreational Drug Use: No Drug Use in Last 12 Months: No ED ROS GENERAL - Review of Systems Review Of Systems: ROS reveals no pertinent complaints other than HPI. ED EXAM, RENAL/ - Physical Exam Exam: See Below Course - Vital Signs Last Recorded V/S: Last Vital Signs Temp 98.2 F 08/17/17 12:24 Pulse 85 08/17/17 12:24 Resp 18 08/17/17 12:24 BP 147/84 H 08/17/17 12:24 Pulse Ox 99 08/17/17 12:24 - Orders/Labs/Meds Orders: Active Orders 24 hr Category Date Time Status CULTURE BLOOD [BC] Stat Lab 08/17/17 10:41 Received Labs: Laboratory Tests 08/17/17 08/17/17 08/17/17 Range/Units 10:30 10:46 10:46 WBC 8.58 (4.0-11.0) K/uL RBC 3.89 L (4.30-5.90) M/uL Hgb 11.8 L (12.0-16.0) g/dL Hct 35.7 L (36.0-46.0) % MCV 91.8 (80.0-98.0) fL MCH 30.3 (27.0-32.0) pg MCHC 33.1 (31.0-37.0) g/dL RDW Std Deviation 43.3 (28.0-62.0) fl RDW Coeff of Jeanne 13 (11.0-15.0) % Plt Count 309 (150-400) K/uL MPV 11.20 (7.40-12.00) fL Neut % (Auto) 83.6 H (48.0-80.0) % Lymph % (Auto) 9.7 L (16.0-40.0) % Henderson % (Auto) 4.3 (0.0-15.0) % Eos % (Auto) 2.2 (0.0-7.0) % Baso % (Auto) 0.2 (0.0-1.5) % Neut # (Auto) 7.2 H (1.4-5.7) K/uL Lymph # (Auto) 0.8 (0.6-2.4) K/uL Henderson # (Auto) 0.4 (0.0-0.8) K/uL Eos # (Auto) 0.2 (0.0-0.7) K/uL Baso # (Auto) 0.0 (0.0-0.1) K/uL Nucleated RBC % 0.0 /100WBC Nucleated RBCs # 0 K/uL Lactate (0.20-2.00) mmol/L Sodium 140 (136-146) mmol/L Potassium 3.9 (3.5-5.1) mmol/L Chloride 106 (98-110) mmol/L Carbon Dioxide 23 (21-31) mmol/L BUN 20 (6.0-23.0) mg/dL Creatinine 0.9 (0.6-1.5) mg/dL Est Cr Clr Drug Dosing TNP Estimated GFR (MDRD) > 60.0 ml/min Glucose 91 (60-110) mg/dL Calcium 9.8 (8.8-10.8) mg/dL Total Bilirubin 0.3 (0.1-1.5) mg/dL AST 21 (5-40) IU/L ALT 14 (8-54) IU/L Alkaline Phosphatase 103 (40-150) Total Protein 7.6 (6.0-8.0) g/dL Albumin 4.3 (3.5-5.0) g/dL Globulin 3.3 (2.0-3.5) g/dL Albumin/Globulin Ratio 1.3 (1.3-2.8) Urine Color YELLOW Urine Appearance CLEAR Urine pH 6.0 (5.0-8.0) Ur Specific [place] 1.025 (1.001-1.035) Urine Protein NEGATIVE (NEGATIVE) mg/dL Urine Glucose (UA) NEGATIVE (NEGATIVE) mg/dL Urine Ketones TRACE H (NEGATIVE) mg/dL Urine Occult Blood TRACE-LYSED (NEGATIVE) Urine Nitrite NEGATIVE (NEGATIVE) Urine Bilirubin NEGATIVE (NEGATIVE) Urine Urobilinogen 0.2 (<2.0) EU/dL Ur Leukocyte Esterase NEGATIVE (NEGATIVE) Urine RBC 0-1 (0-2/HPF) Urine WBC 0-1 (0-5/HPF) Ur Epithelial Cells MODERATE (NONE-FEW) Urine Bacteria FEW (NEGATIVE) Urinalysis Comment 08/17/17 Range/Units 10:46 WBC (4.0-11.0) K/uL RBC (4.30-5.90) M/uL Hgb (12.0-16.0) g/dL Hct (36.0-46.0) % MCV (80.0-98.0) fL MCH (27.0-32.0) pg MCHC (31.0-37.0) g/dL RDW Std Deviation (28.0-62.0) fl RDW Coeff of Jeanne (11.0-15.0) % Plt Count (150-400) K/uL MPV (7.40-12.00) fL Neut % (Auto) (48.0-80.0) % Lymph % (Auto) (16.0-40.0) % Henderson % (Auto) (0.0-15.0) % Eos % (Auto) (0.0-7.0) % Baso % (Auto) (0.0-1.5) % Neut # (Auto) (1.4-5.7) K/uL Lymph # (Auto) (0.6-2.4) K/uL Henderson # (Auto) (0.0-0.8) K/uL Eos # (Auto) (0.0-0.7) K/uL Baso # (Auto) (0.0-0.1) K/uL Nucleated RBC % /100WBC Nucleated RBCs # K/uL Lactate 1.2 (0.20-2.00) mmol/L Sodium (136-146) mmol/L Potassium (3.5-5.1) mmol/L Chloride (98-110) mmol/L Carbon Dioxide (21-31) mmol/L BUN (6.0-23.0) mg/dL Creatinine (0.6-1.5) mg/dL Est Cr Clr Drug Dosing Estimated GFR (MDRD) ml/min Glucose (60-110) mg/dL Calcium (8.8-10.8) mg/dL Total Bilirubin (0.1-1.5) mg/dL AST (5-40) IU/L ALT (8-54) IU/L Alkaline Phosphatase (40-150) Total Protein (6.0-8.0) g/dL Albumin (3.5-5.0) g/dL Globulin (2.0-3.5) g/dL Albumin/Globulin Ratio (1.3-2.8) Urine Color Urine Appearance Urine pH (5.0-8.0) Ur Specific [place] (1.001-1.035) Urine Protein (NEGATIVE) mg/dL Urine Glucose (UA) (NEGATIVE) mg/dL Urine Ketones (NEGATIVE) mg/dL Urine Occult Blood (NEGATIVE) Urine Nitrite (NEGATIVE) Urine Bilirubin (NEGATIVE) Urine Urobilinogen (<2.0) EU/dL Ur Leukocyte Esterase (NEGATIVE) Urine RBC (0-2/HPF) Urine WBC (0-5/HPF) Ur Epithelial Cells (NONE-FEW) Urine Bacteria (NEGATIVE) Urinalysis Comment Meds: Medications Discontinued Medications Generic Name Dose Route Start Last Admin Trade Name Freq PRN Reason Stop Dose Admin Sodium Chloride 1,000 mls @ 125 mls/hr 08/17/17 10:29 08/17/17 11:00 Normal Saline IV 08/17/17 18:28 125 mls/hr STAT ONE Administration Ketorolac Tromethamine 30 mg 08/17/17 10:40 08/17/17 11:00 Toradol IVPUSH 08/17/17 10:41 30 mg ONETIME ONE Administration Ondansetron HCl 4 mg 08/17/17 10:40 08/17/17 11:00 Zofran IVPUSH 12/11/17 10:41 4 mg ONETIME ONE Administration Departure - Departure Time of Disposition: 12:10 Disposition: Home, Self-Care 01 Condition: Good Clinical Impression: Nausea - Discharge Information Instructions: Rehydration, Adult, Urinary Tract Infection, Adult Referrals: PCP,None [Primary Care Provider] - Forms: ED Department Discharge Additional Instructions: The following information is given to patients seen in the emergency department who are being discharged to home. This information is to outline your options for follow-up care. We provide all patients seen in our emergency department with a follow-up referral. The need for follow-up, as well as the timing and circumstances, are variable depending upon the specifics of your emergency department visit. If you don't have a primary care physician on staff, we will provide you with a referral. We always advise you to contact your personal physician following an emergency department visit to inform them of the circumstance of the visit and for follow-up with them and/or the need for any referrals to a consulting specialist. The emergency department will also refer you to a specialist when appropriate. This referral assures that you have the opportunity for follow-up care with a specialist. All of these measure are taken in an effort to provide you with optimal care, which includes your follow-up. Under all circumstances we always encourage you to contact your private physician who remains a resource for coordinating your care. When calling for follow-up care, please make the office aware that this follow-up is from your recent emergency room visit. If for any reason you are refused follow-up, please contact the [facility] emergency department at and asked to speak to the emergency department charge nurse. [facility] [address] [place] [id number] Follow-up with your primary care provider at the clinic listed above in 48-72 hours. Push fluids, get plenty of rest. Return to ER as needed as discussed. - My Orders Last 24 Hours: My Active Orders 08/17/17 10:41 CULTURE BLOOD [BC] Stat - Assessment/Plan Last 24 Hours: My Active Orders 08/17/17 10:41 CULTURE BLOOD [BC] Stat
[2017-08-17 11:24] LABS: CHLORIDE,CL 106 mmol/L (98-110); SODIUM,NA 140 mmol/L (136-146)
[2017-08-17 12:25] VITALS: BP 147/84
== END 2017-08-17 12:24 | disposition home or self-care (01) ==
LOC: MW.ED 10:24
DX: N39.0 Urinary tract infection, site not specified (principal); B34.9 Viral infection, unspecified; I10 Essential (primary) hypertension; Z79.899 Other long term (current) drug therapy; Z91.030 Bee allergy status
CPT/HCPCS: 36415; 80053; 81001; 83605; 85025; 87040; 96361; 96374; 96375; 99284; J1885; J2405; J7040

== ENCOUNTER 2018-12-20 10:04 | Day surgery (SDC) | payer BC ==
[2018-12-20] MEDS ORDERED: Sodium Chloride 0.9% 2.5 ML Syringe FLUSH PRN (10:32)
[2018-12-20] MEDS ORDERED: ceFAZolin 1 GM in Premix Bag 1 BAG IV ONE (10:32)
[2018-12-20] MEDS ORDERED: Sodium Chloride 0.9% 10 ML SDV IV PRN (10:32)
[2018-12-20] MEDS ORDERED: Sodium Chloride 0.9% 10 ML Syringe FLUSH PRN (10:32)
[2018-12-20] MEDS ORDERED: Lidocaine 1% with EPINEPHrine 1:100,000 10 ML MDV ONE (10:56)
[2018-12-20] MEDS ORDERED: Neomycin/Polymyxin B Bladder Irrigation 1 ML Amp ONE (10:57)
[2018-12-20] MEDS ORDERED: Bupivacaine 0.25% 10 ML SDV ONE (10:57)
[2018-12-20] MEDS ORDERED: Lactated Ringers 1,000 ML IV SCH (11:15)
--- NOTE | 2018-12-20 11:23 | PCM.PREANE ---
Preanesthetic Assessment - Anesthesia/Transfusion/Family Hx Anesthesia History: Prior Anesthesia Without Reaction Other Type of Anesthesia Reaction Comment: DENIES ANY PROBLEMS WITH ANESTHESIA Family History of Anesthesia Reaction: No Transfusion History: No Prior Transfusion(s) - Review of Systems General: No Symptoms Pulmonary: No Symptoms Cardiovascular: No Symptoms Gastrointestinal: No Symptoms Neurological: No Symptoms Other: Reports: None - Physical Assessment NPO Status Date: 12/20/18 NPO Status Time: 06:00 O2 Sat by Pulse Oximetry: 100 Respiratory Rate: 18 Vital Signs: Last Vital Signs Temp 97.7 F 12/20/18 10:20 Pulse 89 12/20/18 10:20 Resp 18 12/20/18 10:20 BP 148/65 H 12/20/18 10:20 Pulse Ox 100 12/20/18 10:20 Height: 5 ft Weight: 64.41 kg ASA Class: 2 Mental Status: Alert & Oriented x3 Airway Class: Mallampati = 2 Dentition: Reports: Partial ROM/Head Extension: Full Lungs: Clear to Auscultation, Normal Respiratory Effort Cardiovascular: Regular Rate, Regular Rhythm, Murmurs (systolic 2/6) - Lab Values: Laboratory Last Values WBC 11.45 K/uL (4.0-11.0) H 12/20/18 10:35 RBC 3.23 M/uL (4.30-5.90) L 12/20/18 10:35 Hgb 7.9 g/dL (12.0-16.0) L 12/20/18 10:35 Hct 25.9 % (36.0-46.0) L 12/20/18 10:35 MCV 80.2 fL (80.0-98.0) 12/20/18 10:35 MCH 24.5 pg (27.0-32.0) L 12/20/18 10:35 MCHC 30.5 g/dL (31.0-37.0) L 12/20/18 10:35 RDW Std Deviation 44.9 fl (28.0-62.0) 12/20/18 10:35 RDW Coeff of Jeanne 15 % (11.0-15.0) 12/20/18 10:35 Plt Count 360 K/uL (150-400) 12/20/18 10:35 MPV 10.00 fL (7.40-12.00) 12/20/18 10:35 Nucleated RBC % 0.0 /100WBC 12/20/18 10:35 Nucleated RBCs # 0 K/uL 12/20/18 10:35 - Allergies Allergies/Adverse Reactions: Allergies Allergy/AdvReac Type Severity Reaction Status Date / Time venom-honey bee Allergy Anaphylactic Verified 12/15/18 14:41 [bee venom (honey bee)] Shock - Anesthesia Plan Pre-Op Medication Ordered: None - Acknowledgements Anesthesia Type Planned: General Anesthesia Pt an Appropriate Candidate for the Planned Anesthesia: Yes Alternatives and Risks of Anesthesia Discussed w Pt/Guardian: Yes Pt/Guardian Understands and Agrees with Anesthesia Plan: Yes Additional Comments: PMH: KARLEE, htn, migraine, chronic pain syndrome- on oxycodone and lyrica, ADHD? 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: 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, , Spontaneous Musculoskeletal History: Reports: None Neurological History: Reports: Migraines Other Neuro History: chronic migraines Psychiatric History: Reports: Anxiety, Depression Endocrine/Metabolic History: Reports: None Hematologic History: Reports: None Immunologic History: Reports: None Oncologic (Cancer) History: Reports: None Dermatologic History: Reports: None - Infectious Disease History Infectious Disease History: Reports: Chicken Pox - Past Surgical History Head Surgeries/Procedures: Reports: None HEENT Surgical History: Reports: Adenoidectomy, Tonsillectomy Cardiovascular Surgical History: Reports: None Respiratory Surgical History: Reports: None GI Surgical History: Reports: Bariatric Procedure, Colon Other GI Surgeries/Procedures: Bowel Resection Female Surgical History: Reports: Breast Reduction, Section, Hysterectomy, Salpingo-Oophorectomy, Other (See Below) Other Female Surgeries/Procedures: Laparoscopy for removal of adhesions Endocrine Surgical History: Reports: None Neurological Surgical History: Reports: None Musculoskeletal Surgical History: Reports: Shoulder Surgery Other Musculoskeletal Surgeries/Procedures:: left RTCR Oncologic Surgical History: Reports: None - SUBSTANCE USE Smoking Status *Q: Never Smoker Days Per Week of Alcohol Use: 7 Number of Drinks Per Day: 1 Total Drinks Per Week: 7 Recreational Drug Use History: No - HOME MEDS Home Medications: Home Meds Verapamil HCl [Verapamil] 240 mg PO QAM 12/13/13 [History] Ondansetron [IJP: Ondansetron ODT] 4 mg PO Q8H PRN 01/13/17 [History] traZODone 100 mg PO BEDTIME PRN 01/13/17 [History] ARIPiprazole [Abilify] 15 mg PO QAM 12/15/18 [History] Acetaminophen/Butalbital/Caff [Fioricet 325-50-40 MG] 1 tab PO Q4H PRN 12/15/18 [History] Cyanocobalamin (Vitamin B12) [Vitamin B12] 250 mcg PO QAM 12/15/18 [History] Desvenlafaxine Succinate [Pristiq] 100 mg PO QAM 12/15/18 [History] Dextroamphetamine/Amphetamine [Adderall 20 mg Tablet] 20 mg PO BID 12/15/18 [ History] Dextroamphetamine/Amphetamine [Adderall] 30 mg PO QAM 12/15/18 [History] Dihydroergotamine [Dhe 45] 1 spray NASBOTH ASDIRECTED PRN 12/15/18 [History] Folate 4 mg PO QAM 12/15/18 [History] Linaclotide [Linzess] 145 mg PO QAM 12/15/18 [History] Naratriptan HCl 2.5 mg PO DAILY PRN 12/15/18 [History] Omeprazole 20 mg PO DAILY PRN 12/15/18 [History] Pregabalin [Lyrica] 225 mg PO BID 12/15/18 [History] Sucralfate 1 gm PO QID PRN 12/15/18 [History] oxyCODONE 5 mg PO Q6H PRN 12/15/18 [History] - CURRENT (IN HOUSE) MEDS Current Meds: Current Medications Lactated Ringer's (Ringers, Lactated) 1,000 mls @ 125 mls/hr IV ASDIRECTED ROMELIA Last Admin: 12/20/18 10:45 Dose: 125 mls/hr Sodium Chloride (Saline Flush) 10 ml FLUSH ASDIRECTED PRN PRN Reason: Keep Vein Open Sodium Chloride (Saline Flush) 2.5 ml FLUSH ASDIRECTED PRN PRN Reason: Keep Vein Open Sodium Chloride (Normal Saline) 10 ml IV ASDIRECTED PRN PRN Reason: IV Use Discontinued Medications Bupivacaine HCl (Sensorcaine-Mpf 0.25%) Confirm Administered Dose 10 ml .ROUTE .STK-MED ONE Stop: 12/20/18 10:58 Cefazolin Sodium/Dextrose 1 gm (/ Premix) 50 mls @ 100 mls/hr IV ONETIME ONE Stop: 12/20/18 11:01 Lidocaine/Epinephrine (Xylocaine 1% With Epinephrine 1:100,000) Confirm Administered Dose 10 ml .ROUTE .STK-MED ONE Stop: 12/20/18 10:57 Neomycin/Polymyxin (Neosporin Gu Irrigant) Confirm Administered Dose 1 ml .ROUTE .STK-MED ONE Stop: 12/20/18 10:58
[2018-12-20] MEDS ORDERED: Propofol 200 MG/20 ML SDV ONE ×2 (12:17→14:06)
[2018-12-20] MEDS ORDERED: fentaNYL 250 MCG/5 ML SDV ONE (12:18)
[2018-12-20] MEDS ORDERED: Midazolam 1 MG/ML 2 ML SDV ONE ×2 (13:29→13:51)
[2018-12-20] MEDS ORDERED: ceFAZolin 1 GM Vial ONE (13:53)
--- NOTE | 2018-12-20 14:32 | PCM48HPAN ---
Post Anesthesia Note - EVALUATION WITHIN 48HRS OF ANESTHETIC Vital Signs in Normal Range: Yes Patient Participated in Evaluation: Yes Respiratory Function Stable: Yes Airway Patent: Yes Cardiovascular Function Stable: Yes Hydration Status Stable: Yes Pain Control Satisfactory: Yes Nausea and Vomiting Control Satisfactory: Yes Mental Status Recovered: Yes Resp Rate: 18 - COMMENTS/OBSERVATIONS Free Text/Narrative:: direct back to phase 2 pacu
--- NOTE | 2018-12-20 14:42 | PCM.OPNOTE ---
- General Post-Op/Procedure Note Date of Surgery/Procedure: 12/20/18 Operative Procedure(s): Midurethral sling, solyx Findings: Urethral hypermobility, stress incontinence Pre Op Diagnosis: KARLEE, urethral hypermobility Post-Op Diagnosis: Same Anesthesia Technique: Local, MAC Primary Surgeon: Gabrielle Lagos Fluid Replacement, Intraop: 1,400 EBL in mLs: 30 Complications: none known Condition: Good Free Text/Narrative:: Dictation [id number]
[2018-12-20 15:18] VITALS: BP 111/57
--- NOTE | 2018-12-20 21:24 | OR ---
SURGEON: Gabrielle Lagos M.D. DATE OF PROCEDURE: 12/20/2018 PREOPERATIVE DIAGNOSES: 1. Stress urinary incontinence. 2. Urethral hypermobility. POSTOPERATIVE DIAGNOSES: 1. Stress urinary incontinence. 2. Urethral hypermobility. PROCEDURE: Mid urethral sling, Solyx. PRIMARY SURGEON: Gabrielle Lagos M.D. ANESTHESIA: MAC with local. FLUIDS: 1400 mL crystalloid. ESTIMATED BLOOD LOSS: 30 mL. COMPLICATIONS: None. FINDINGS: Urethral hypermobility. DISPOSITION: The patient to same-day surgery, stable. PROCEDURE IN DETAIL: This is a 43-year-old female who has ongoing difficulties with stress urinary incontinence. Cystometry indicates she is a reasonable candidate for mid urethral sling. She would like to proceed with surgical intervention. Risks of procedure have been discussed. Proper consent obtained. The patient was taken to the operating room where she underwent MAC anesthetic, was then placed in modified dorsal lithotomy position, was prepped and draped in the usual sterile fashion. SCDs to lower extremities. Bladder was drained. Villanueva to gravity. She received Ancef prophylactically. The urethral meatus was now identified directly below the sagittal midline. The region was infiltrated with 0.25% Marcaine, 1% lidocaine with epinephrine diluted in saline. See nurse's notes for total amount of local dispensed during the procedure. The periurethral spaces were now also hydrodissected with local anesthetic. Just below the urethral meatus, after palpating where the neck of the bladder was with the Villanueva catheter, created a midline sagittal incision in the mid urethral plane. The edges of the vaginal mucosa were grasped on either side with Allis clamps and the periurethral spaces on either side were dissected sharply with Metzenbaum scissors until the medial aspect of the pubic ramus was able to be palpated on either side. Using the Solyx introducer, the Solyx tape was now gently secured to the introducer. The introducer was introduced along the vaginal incision along the patient's right side. Guiding this with the right index finger, I was able to palpate the medial aspect of the pubic ramus bone just beyond there could palpate the transobturator muscle in a 45 degree angle, I was able to introduce the tape into the muscle. Once we felt the tape was securely placed in the muscle, the tape was released from the introducer, a similar fashion was performed on the patient's left side using the left index finger for guidance and introducing the tape into the left side of the transobturator muscle. Once again the trocar was released from the tape, the tape was felt to be satisfactorily positioned. The skin edges were reapproximated using 3-0 Vicryl continuous running locked fashion. The bladder was now backfilled with 240 mL of saline with Neosporin. The Valsalva maneuvers were placed and the patient appeared to not have any leakage. Therefore, the Villanueva catheter was replaced. She will go to Day Surgery to be monitored and undergo a trial of voiding by instillation. Sponge, instrument, and needle count was correct x2. All instruments were removed from the vagina. Hemostasis appeared evident. The patient tolerated the procedure well overall. COBY YEN /[id number]
== END 2018-12-20 15:05 | disposition home or self-care (01) ==
LOC: MW.SDS 10:04
PROVIDERS: ATTEND Obstetrics & Gynecology
DX: N39.3 Stress incontinence (female) (male) (principal); N36.41 Hypermobility of urethra; I10 Essential (primary) hypertension; F32.9 Major depressive disorder, single episode, unspecified; F41.9 Anxiety disorder, unspecified; Z91.030 Bee allergy status; Z79.899 Other long term (current) drug therapy
CPT/HCPCS: 36415; 57288; 85027; C1771; J0690; J2250; J2704; J3010; J3490; J7120; 00860

== ENCOUNTER 2019-01-27 13:04 | Emergency (ER) | payer BC ==
[2019-01-27 13:10] VITALS: BP 153/76
[2019-01-27] MEDS ORDERED: Aspirin 81 MG Tab.Chew PO ONE (13:48)
[2019-01-27 13:52] LABS: CHLORIDE,CL 103 mmol/L (98-107); SODIUM,NA 140 mmol/L (136-145)
--- NOTE | 2019-01-27 14:02 | EDM.PDOC ---
ED HPI GENERAL MEDICAL PROBLEM - General Chief Complaint: Chest Pain Stated Complaint: CHEST PAIN Time Seen by Provider: 01/27/19 13:06 Source of Information: Reports: Patient History Limitations: Reports: No Limitations - History of Present Illness INITIAL COMMENTS - FREE TEXT/NARRATIVE: HISTORY AND PHYSICAL: History of present illness: Patient is a 43-year-old female presents to the ED today with concern of intermittent chest pain over the past 4 days. Patient states the pain feels like it's under her bra line in the front of her chest. Patient states she has not taken anything for her symptoms. Patient states nothing makes the pain better and nothing makes it worse. Currently, patient states she does not have any chest pain. Patient states it comes and goes. Patient states when it comes with approximately a 5-6 out of 10. Patient denies any other associated symptoms with it. Patient states she does have a headache but this is usual per her baseline due to her history of migraines. Patient denies fever, chills, shortness of breath, or cough. Denies neck stiff ness, change in vision, syncope, or near syncope. Denies nausea, vomiting, abdominal pain, diarrhea, constipation, or dysuria. Has not noted any blood in urine or stool. Patient has been eating and drinking appropriately. Patient has a history of gastric bypass, urinary tract infections, and migraine disorder. Review of systems: As per history of present illness and below otherwise all systems reviewed and negative. Past medical history: As per history of present illness and as reviewed below otherwise noncontributory. Surgical history: As per history of present illness and as reviewed below otherwise noncontributory. Social history: See social history for further information Family history: As per history of present illness and as reviewed below otherwise noncontributory. Physical exam: General: Patient is alert, oriented, and in no acute distress. Patient laying comfortably on exam table. HEENT: Atraumatic, normocephalic, pupils equal and reactive bilaterally, negative for conjunctival pallor or scleral icterus, mucous membranes moist, TMs normal bilaterally, throat clear, neck supple, nontender, trachea midline. No drooling or trismus noted. No meningeal signs. No hot potato voice noted. Lungs: Clear to auscultation, breath sounds equal bilaterally, chest nontender. Heart: S1S2, regular rate and rhythm without overt murmur Abdomen: Soft, nondistended, nontender. Negative for masses or hepatosplenomegaly. Negative for costovertebral tenderness. Pelvis: Stable nontender. Genitourinary: Deferred. Rectal: Deferred. Skin: Intact, warm, dry. No lesions or rashes noted. Extremities: Atraumatic, negative for cords or calf pain. Neurovascular unremarkable. Neuro: Awake, alert, oriented. Cranial nerves II through XII unremarkable. Cerebellum unremarkable. Motor and sensory unremarkable throughout. Exam nonfocal. Notes: Patient eager to leave ED before discharge. Offered admission for observation but patient declines. Voices understanding and is agreeable to plan of care. Denies any further questions or concerns at this time. Diagnostics: CBC, CMP, UA, chest x-ray, EKG, troponin Therapeutics: Aspirin Prescription: None Impression: Chest pain, unspecified Plan: 1. You can alternate ibuprofen and Tylenol as directed for pain and discomfort. 2. Follow-up with her primary care provider as discussed. Return to the ED as needed and as discussed. Definitive disposition and diagnosis as appropriate pending reevaluation and review of above. Mid Sternal Chest Pain Score (Numeric/FACES): 8 - Related Data Allergies Allergy/AdvReac Type Severity Reaction Status Date / Time venom-honey bee Allergy Anaphylactic Verified 01/27/19 13:08 [bee venom (honey bee)] Shock Home Meds: Home Meds Verapamil HCl [Verapamil] 240 mg PO QAM 12/13/13 [History] Ondansetron [IJP: Ondansetron ODT] 4 mg PO Q8H PRN 01/13/17 [History] traZODone 100 mg PO BEDTIME PRN 01/13/17 [History] ARIPiprazole [Abilify] 15 mg PO QAM 12/15/18 [History] Acetaminophen/Butalbital/Caff [Fioricet 325-50-40 MG] 1 tab PO Q4H PRN 12/15/18 [History] Cyanocobalamin (Vitamin B12) [Vitamin B12] 250 mcg PO QAM 12/15/18 [History] Desvenlafaxine Succinate [Pristiq] 100 mg PO QAM 12/15/18 [History] Dextroamphetamine/Amphetamine [Adderall 20 mg Tablet] 20 mg PO BID 12/15/18 [ History] Dextroamphetamine/Amphetamine [Adderall] 30 mg PO QAM 12/15/18 [History] Dihydroergotamine [Dhe 45] 1 spray NASBOTH ASDIRECTED PRN 12/15/18 [History] Folate 4 mg PO QAM 12/15/18 [History] Linaclotide [Linzess] 145 mg PO QAM 12/15/18 [History] Naratriptan HCl 2.5 mg PO DAILY PRN 12/15/18 [History] Omeprazole 20 mg PO DAILY PRN 12/15/18 [History] Pregabalin [Lyrica] 225 mg PO BID 12/15/18 [History] Sucralfate 1 gm PO QID PRN 12/15/18 [History] oxyCODONE 5 mg PO Q6H PRN 12/15/18 [History] Past Medical History - Past Health History Medical/Surgical History: Denies Medical/Surgical History HEENT History: Reports: Other (See Below) Other HEENT History: wears glasses/contacts, has lower partial removable denture Cardiovascular History: Reports: Heart Murmur, Hypertension Other Cardiovascular History: has an ECHO scheduled 12-28-18 Respiratory History: Reports: None Gastrointestinal History: Reports: Irritable Bowel Syndrome, PUD Genitourinary History: Reports: Urinary Incontinence PROOFER History: Reports: 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, , Spontaneous Musculoskeletal History: Reports: None Neurological History: Reports: Migraines Other Neuro History: chronic migraines Psychiatric History: Reports: Anxiety, Depression Endocrine/Metabolic History: Reports: None Hematologic History: Reports: None Immunologic History: Reports: None Oncologic (Cancer) History: Reports: None Dermatologic History: Reports: None - Infectious Disease History Infectious Disease History: Reports: Chicken Pox - Past Surgical History Head Surgeries/Procedures: Reports: None HEENT Surgical History: Reports: Adenoidectomy, Tonsillectomy Cardiovascular Surgical History: Reports: None Respiratory Surgical History: Reports: None GI Surgical History: Reports: Bariatric Procedure, Colon Other GI Surgeries/Procedures: Bowel Resection Female Surgical History: Reports: Breast Reduction, Section, Hysterectomy, Salpingo-Oophorectomy, Other (See Below) Other Female Surgeries/Procedures: Laparoscopy for removal of adhesions Endocrine Surgical History: Reports: None Neurological Surgical History: Reports: None Musculoskeletal Surgical History: Reports: Shoulder Surgery Other Musculoskeletal Surgeries/Procedures:: left RTCR Oncologic Surgical History: Reports: None Social & Family History - Family History Family Medical History: Noncontributory - Tobacco Use Smoking Status *Q: Unknown Ever Smoked - Caffeine Use Caffeine Use: Reports: Coffee - Recreational Drug Use Recreational Drug Use: No ED ROS GENERAL - Review of Systems Review Of Systems: ROS reveals no pertinent complaints other than HPI. ED EXAM, GENERAL - Physical Exam Exam: See Below (See dictation) Course - Vital Signs Last Recorded V/S: Last Vital Signs Temp 36.7 C 01/27/19 13:08 Pulse 84 01/27/19 13:08 Resp 16 01/27/19 13:08 BP 153/76 H 01/27/19 13:08 Pulse Ox 97 01/27/19 13:08 - Orders/Labs/Meds Orders: Active Orders 24 hr Category Date Time Status EKG Documentation Completion [RC] STAT Care 01/27/19 13:07 Active UA RFX JACOB AND CULT IF INDIC [URIN] Stat Lab 01/27/19 14:01 Ordered Labs: Laboratory Tests 01/27/19 01/27/19 01/27/19 Range/Units 13:11 13:11 13:51 WBC 9.69 (4.0-11.0) K/uL RBC 4.05 L (4.30-5.90) M/uL Hgb 9.0 L (12.0-16.0) g/dL Hct 30.8 L (36.0-46.0) % MCV 76.0 L (80.0-98.0) fL MCH 22.2 L (27.0-32.0) pg MCHC 29.2 L (31.0-37.0) g/dL RDW Std Deviation 45.2 (28.0-62.0) fl RDW Coeff of Jeanne 16 H (11.0-15.0) % Plt Count 431 H (150-400) K/uL MPV 10.30 (7.40-12.00) fL Neut % (Auto) 71.3 (48.0-80.0) % Lymph % (Auto) 21.6 (16.0-40.0) % Dane % (Auto) 5.4 (0.0-15.0) % Eos % (Auto) 1.4 (0.0-7.0) % Baso % (Auto) 0.3 (0.0-1.5) % Neut # (Auto) 6.9 H (1.4-5.7) K/uL Lymph # (Auto) 2.1 (0.6-2.4) K/uL Dane # (Auto) 0.5 (0.0-0.8) K/uL Eos # (Auto) 0.1 (0.0-0.7) K/uL Baso # (Auto) 0.0 (0.0-0.1) K/uL Nucleated RBC % 0.0 /100WBC Nucleated RBCs # 0 K/uL Sodium 140 (136-145) mmol/L Potassium 3.5 (3.5-5.1) mmol/L Chloride 103 (98-107) mmol/L Carbon Dioxide 27.7 (21.0-32.0) mmol/L BUN 11 (7.0-18.0) mg/dL Creatinine 0.8 (0.6-1.0) mg/dL Est Cr Clr Drug Dosing 83.13 mL/min Estimated GFR (MDRD) > 60.0 ml/min Glucose 92 (74-106) mg/dL Calcium 9.1 (8.5-10.1) mg/dL Total Bilirubin 0.2 (0.2-1.0) mg/dL AST 11 L (15-37) IU/L ALT 21 (14-63) IU/L Alkaline Phosphatase 97 (46-116) U/L Troponin I < 0.050 (0.000-0.056) ng/mL Total Protein 8.1 (6.4-8.2) g/dL Albumin 4.1 (3.4-5.0) g/dL Globulin 4.0 (2.6-4.0) g/dL Albumin/Globulin Ratio 1.0 (0.9-1.6) Urine Color YELLOW Urine Appearance CLEAR Urine pH 7.0 (5.0-8.0) Ur Specific [place] 1.010 (1.001-1.035) Urine Protein NEGATIVE (NEGATIVE) mg/dL Urine Glucose (UA) NEGATIVE (NEGATIVE) mg/dL Urine Ketones NEGATIVE (NEGATIVE) mg/dL Urine Occult Blood NEGATIVE (NEGATIVE) Urine Nitrite NEGATIVE (NEGATIVE) Urine Bilirubin NEGATIVE (NEGATIVE) Urine Urobilinogen 0.2 (<2.0) EU/dL Ur Leukocyte Esterase NEGATIVE (NEGATIVE) Meds: Medications Discontinued Medications Generic Name Dose Route Start Last Admin Trade Name [place] PRN Reason Stop Dose Admin Aspirin 324 mg 01/27/19 13:48 01/27/19 14:04 Aspirin PO 01/27/19 13:49 324 mg ONETIME ONE Administration Departure - Departure Time of Disposition: 14:43 Disposition: Home, Self-Care 01 Clinical Impression: Chest pain Qualifiers: Chest pain type: unspecified Qualified Code(s): R07.9 - Chest pain, unspecified Forms: ED Department Discharge Additional Instructions: The following information is given to patients seen in the emergency department who are being discharged to home. This information is to outline your options for follow-up care. We provide all patients seen in our emergency department with a follow-up referral. The need for follow-up, as well as the timing and circumstances, are variable depending upon the specifics of your emergency department visit. If you don't have a primary care physician on staff, we will provide you with a referral. We always advise you to contact your personal physician following an emergency department visit to inform them of the circumstance of the visit and for follow-up with them and/or the need for any referrals to a consulting specialist. The emergency department will also refer you to a specialist when appropriate. This referral assures that you have the opportunity for follow-up care with a specialist. All of these measure are taken in an effort to provide you with optimal care, which includes your follow-up. Under all circumstances we always encourage you to contact your private physician who remains a resource for coordinating your care. When calling for follow-up care, please make the office aware that this follow-up is from your recent emergency room visit. If for any reason you are refused follow-up, please contact the [facility] Emergency Department at and asked to speak to the emergency department charge nurse. [facility] Primary Care [address] [place] [id number] [facility] [address] [place] [id number] 1. You can alternate ibuprofen and Tylenol as directed for pain and discomfort. 2. Follow-up with her primary care provider as discussed. Return to the ED as needed and as discussed. - My Orders Last 24 Hours: My Active Orders 01/27/19 13:07 EKG Documentation Completion [RC] STAT 01/27/19 14:01 UA RFX JACOB AND CULT IF INDIC [URIN] Stat - Assessment/Plan Last 24 Hours: My Active Orders 01/27/19 13:07 EKG Documentation Completion [RC] STAT 01/27/19 14:01 UA RFX JACOB AND CULT IF INDIC [URIN] Stat
--- NOTE | 2019-01-27 14:03 | CR ---
EXAMINATION: Portable chest radiograph. HISTORY: Chest pain. FINDINGS: The trachea is midline. The cardiomediastinal silhouette is within normal limits. No pulmonary infiltrates, effusions or pneumothorax. Osseous structures appear unremarkable. IMPRESSION: No acute cardiopulmonary process.
== END 2019-01-27 14:57 | disposition home or self-care (01) ==
LOC: MW.ED 13:04
DX: R07.9 Chest pain, unspecified (principal); I10 Essential (primary) hypertension; F41.9 Anxiety disorder, unspecified; F32.9 Major depressive disorder, single episode, unspecified; Z98.890 Other specified postprocedural states; Z90.710 Acquired absence of both cervix and uterus; Z79.899 Other long term (current) drug therapy; Z98.84 Bariatric surgery status
CPT/HCPCS: 71045; 80053; 81003; 84484; 85025; 93005; 99285; A9270

== ENCOUNTER 2019-04-24 19:29 | Emergency (ER) | payer BC ==
[2019-04-24] MEDS ORDERED: Ondansetron 4 MG/2 ML SDV IVPUSH ONE (19:38)
[2019-04-24] MEDS ORDERED: diphenhydrAMINE 50 MG/ML SDV IVPUSH ONE (19:38)
[2019-04-24] MEDS ORDERED: Ketorolac 30 MG/ML SDV IVPUSH ONE (19:38)
[2019-04-24] MEDS ORDERED: Metoclopramide 10 MG/2 ML SDV IV ONE (19:38)
[2019-04-24] MEDS ORDERED: Sodium Chloride 0.9% 1,000 ML IV ONE (19:38)
--- NOTE | 2019-04-24 19:44 | EDM.PDOC ---
ED HPI GENERAL MEDICAL PROBLEM - General Chief Complaint: Headache Stated Complaint: HEADACHE Time Seen by Provider: 04/24/19 19:39 - History of Present Illness INITIAL COMMENTS - FREE TEXT/NARRATIVE: HISTORY AND PHYSICAL: History of present illness: Patient's 43-year-old white female with a lifelong history of migraine headache who presents with concern of migraine she is associated nausea photophobia and headache she denies vomiting there's been no trauma no fever no chills or other complaints Review of systems: As per history of present illness and below otherwise all systems reviewed and negative. Past medical history: As per history of present illness and as reviewed below otherwise noncontributory. Surgical history: As per history of present illness and as reviewed below otherwise noncontributory. Social history: No reported history of drug or alcohol abuse. Family history: As per history of present illness and as reviewed below otherwise noncontributory. Physical exam: HEENT: Atraumatic, normocephalic, pupils reactive, negative for conjunctival pallor or scleral icterus, mucous membranes moist, throat clear, neck supple, nontender, trachea midline. Lungs: Clear to auscultation, breath sounds equal bilaterally, chest nontender. Heart: S1S2, regular, negative for clicks, rubs, or JVD. Abdomen: Soft, nondistended, nontender. Negative for masses or hepatosplenomegaly. Negative for costovertebral tenderness. Pelvis: Stable nontender. Genitourinary: Deferred. Rectal: Deferred. Extremities: Atraumatic, negative for cords or calf pain. Neurovascular unremarkable. Neuro: Awake, alert, oriented. Cranial nerves II through XII unremarkable. Cerebellum unremarkable. Motor and sensory unremarkable throughout. Exam nonfocal. Diagnostics: None Therapeutics: Saline 1 L bolus and Toradol 30 mg IV Reglan 10 mg IV Benadryl 50 mg IV Zofran 4 mg IV Impression: #1 migraine headache Definitive disposition and diagnosis as appropriate pending reevaluation and review of above. - Related Data Allergies Allergy/AdvReac Type Severity Reaction Status Date / Time venom-honey bee Allergy Anaphylactic Verified 01/27/19 13:08 [bee venom (honey bee)] Shock Home Meds: Home Meds Verapamil HCl [Verapamil] 240 mg PO QAM 12/13/13 [History] Ondansetron [IJP: Ondansetron ODT] 4 mg PO Q8H PRN 01/13/17 [History] traZODone 100 mg PO BEDTIME PRN 01/13/17 [History] ARIPiprazole [Abilify] 15 mg PO QAM 12/15/18 [History] Acetaminophen/Butalbital/Caff [Fioricet 325-50-40 MG] 1 tab PO Q4H PRN 12/15/18 [History] Cyanocobalamin (Vitamin B12) [Vitamin B12] 250 mcg PO QAM 12/15/18 [History] Desvenlafaxine Succinate [Pristiq] 100 mg PO QAM 12/15/18 [History] Dextroamphetamine/Amphetamine [Adderall 20 mg Tablet] 20 mg PO BID 12/15/18 [ History] Dextroamphetamine/Amphetamine [Adderall] 30 mg PO QAM 12/15/18 [History] Dihydroergotamine [Dhe 45] 1 spray NASBOTH ASDIRECTED PRN 12/15/18 [History] Folate 4 mg PO QAM 12/15/18 [History] Linaclotide [Linzess] 145 mg PO QAM 12/15/18 [History] Naratriptan HCl 2.5 mg PO DAILY PRN 12/15/18 [History] Omeprazole 20 mg PO DAILY PRN 12/15/18 [History] Pregabalin [Lyrica] 225 mg PO BID 12/15/18 [History] Sucralfate 1 gm PO QID PRN 12/15/18 [History] oxyCODONE 5 mg PO Q6H PRN 12/15/18 [History] Past Medical History - Past Health History Medical/Surgical History: Denies Medical/Surgical History HEENT History: Reports: Other (See Below) Other HEENT History: wears glasses/contacts, has lower partial removable denture Cardiovascular History: Reports: Heart Murmur, Hypertension Other Cardiovascular History: has an ECHO scheduled 12-28-18 Respiratory History: Reports: None Gastrointestinal History: Reports: Irritable Bowel Syndrome, PUD Genitourinary History: Reports: Urinary Incontinence [employer]PER[employer] History: Reports: 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, , Spontaneous Musculoskeletal History: Reports: None Neurological History: Reports: Migraines Other Neuro History: chronic migraines Psychiatric History: Reports: Anxiety, Depression Endocrine/Metabolic History: Reports: None Hematologic History: Reports: None Immunologic History: Reports: None Oncologic (Cancer) History: Reports: None Dermatologic History: Reports: None - Infectious Disease History Infectious Disease History: Reports: Chicken Pox - Past Surgical History Head Surgeries/Procedures: Reports: None HEENT Surgical History: Reports: Adenoidectomy, Tonsillectomy Cardiovascular Surgical History: Reports: None Respiratory Surgical History: Reports: None GI Surgical History: Reports: Bariatric Procedure, Colon Other GI Surgeries/Procedures: Bowel Resection Female Surgical History: Reports: Breast Reduction, Section, Hysterectomy, Salpingo-Oophorectomy, Other (See Below) Other Female Surgeries/Procedures: Laparoscopy for removal of adhesions Endocrine Surgical History: Reports: None Neurological Surgical History: Reports: None Musculoskeletal Surgical History: Reports: Shoulder Surgery Other Musculoskeletal Surgeries/Procedures:: left RTCR Oncologic Surgical History: Reports: None Social & Family History - Family History Family Medical History: Noncontributory - Caffeine Use Caffeine Use: Reports: Coffee ED ROS GENERAL - Review of Systems Review Of Systems: ROS reveals no pertinent complaints other than HPI. ED EXAM, GENERAL - Physical Exam Exam: See Below (See dictation) Course - Orders/Labs/Meds Orders: Active Orders 24 hr Category Date Time Status Sodium Chloride 0.9% [Normal Saline] 1,000 ml Med 04/24/19 19:38 Active IV STAT Medication Orders Sodium Chloride (Normal Saline) 1,000 mls @ 999 mls/hr IV STAT ONE Stop: 04/24/19 20:38 Meds: Medications Generic Name Dose Route Start Last Admin Trade Name Freq PRN Reason Stop Dose Admin Sodium Chloride 1,000 mls @ 999 mls/hr 04/24/19 19:38 Normal Saline IV 04/24/19 20:38 STAT ONE Discontinued Medications Generic Name Dose Route Start Last Admin Trade Name Freq PRN Reason Stop Dose Admin Diphenhydramine HCl 50 mg 04/24/19 19:38 Benadryl IVPUSH 04/24/19 19:39 ONETIME ONE Ketorolac Tromethamine 30 mg 04/24/19 19:38 Toradol IVPUSH 04/24/19 19:39 ONETIME ONE Metoclopramide HCl 10 mg 04/24/19 19:38 Reglan IV 04/24/19 19:39 ONETIME ONE Ondansetron HCl 4 mg 04/24/19 19:38 Zofran IVPUSH 04/24/19 19:39 ONETIME ONE Departure - Departure Time of Disposition: 19:44 Disposition: Home, Self-Care 01 Condition: Good Clinical Impression: Migraine - Discharge Information Referrals: PCP,Unknown [Primary Care Provider] - Additional Instructions: The following information is given to patients seen in the emergency department who are being discharged to home. This information is to outline your options for follow-up care. We provide all patients seen in our emergency department with a follow-up referral. The need for follow-up, as well as the timing and circumstances, are variable depending upon the specifics of your emergency department visit. If you don't have a primary care physician on staff, we will provide you with a referral. We always advise you to contact your personal physician following an emergency department visit to inform them of the circumstance of the visit and for follow-up with them and/or the need for any referrals to a consulting specialist. The emergency department will also refer you to a specialist when appropriate. This referral assures that you have the opportunity for followup care with a specialist. All of these measure are taken in an effort to provide you with optimal care, which includes your followup. Under all circumstances we always encourage you to contact your private physician who remains a resource for coordinating your care. When calling for followup care, please make the office aware that this follow-up is from your recent emergency room visit. If for any reason you are refused follow-up, please contact the [facility] emergency department at and asked to speak to the emergency department charge nurse. Follow-up primary medical doctor as needed as discussed return as needed as discussed - My Orders Last 24 Hours: My Active Orders 04/24/19 19:38 Sodium Chloride 0.9% [Normal Saline] 1,000 ml IV STAT - Assessment/Plan Last 24 Hours: My Active Orders 04/24/19 19:38 Sodium Chloride 0.9% [Normal Saline] 1,000 ml IV STAT
[2019-04-24 21:29] VITALS: BP 120/71
== END 2019-04-24 20:52 | disposition home or self-care (01) ==
LOC: MW.ED 19:29
DX: G43.909 Migraine, unspecified, not intractable, without status migrainosus (principal); I10 Essential (primary) hypertension; F41.9 Anxiety disorder, unspecified; F32.9 Major depressive disorder, single episode, unspecified; Z91.030 Bee allergy status; Z79.899 Other long term (current) drug therapy
CPT/HCPCS: 96361; 96374; 96375; 99283; J1200; J1885; J2405; J2765; J7040

== ENCOUNTER 2019-06-20 13:18 | Emergency (ER) | payer BC ==
[2019-06-20] MEDS ORDERED: Sodium Chloride 0.9% 1,000 ML IV ONE (13:46)
--- NOTE | 2019-06-20 13:52 | EDM.PDOC ---
ED HPI GENERAL MEDICAL PROBLEM - General Chief Complaint: Headache Stated Complaint: MIGRAINE Time Seen by Provider: 06/20/19 13:32 - History of Present Illness INITIAL COMMENTS - FREE TEXT/NARRATIVE: HISTORY AND PHYSICAL: History of present illness: Patient's 43-year-old white female history migraine headache presents with a concern of migraine this is typical headache with associated photophobia and nausea patient denies fever chills or other concern. Review of systems: As per history of present illness and below otherwise all systems reviewed and negative. Past medical history: As per history of present illness and as reviewed below otherwise noncontributory. Surgical history: As per history of present illness and as reviewed below otherwise noncontributory. Social history: No reported history of drug or alcohol abuse. Family history: As per history of present illness and as reviewed below otherwise noncontributory. Physical exam: HEENT: Atraumatic, normocephalic, pupils reactive, negative for conjunctival pallor or scleral icterus, mucous membranes moist, throat clear, neck supple, nontender, trachea midline. Lungs: Clear to auscultation, breath sounds equal bilaterally, chest nontender. Heart: S1S2, regular, negative for clicks, rubs, or JVD. Abdomen: Soft, nondistended, nontender. Negative for masses or hepatosplenomegaly. Negative for costovertebral tenderness. Pelvis: Stable nontender. Genitourinary: Deferred. Rectal: Deferred. Extremities: Atraumatic, negative for cords or calf pain. Neurovascular unremarkable. Neuro: Awake, alert, oriented. Cranial nerves II through XII unremarkable. Cerebellum unremarkable. Motor and sensory unremarkable throughout. Exam nonfocal. Diagnostics: None Therapeutics: Saline 1 L bolus Toradol 30 mg IV Zofran 4 mg IV Benadryl 50 mg IV and Reglan 10 mg IV Impression: #1 migraine headache Definitive disposition and diagnosis as appropriate pending reevaluation and review of above. migraine Pain Score (Numeric/FACES): 8 - Related Data Allergies Allergy/AdvReac Type Severity Reaction Status Date / Time venom-honey bee Allergy Anaphylactic Verified 06/20/19 13:32 [bee venom (honey bee)] Shock Home Meds: Home Meds Verapamil HCl [Verapamil] 240 mg PO QAM 12/13/13 [History] Ondansetron [IJP: Ondansetron ODT] 4 mg PO Q8H PRN 01/13/17 [History] traZODone 200 mg PO BEDTIME PRN 01/13/17 [History] ARIPiprazole [Abilify] 15 mg PO QAM 12/15/18 [History] Acetaminophen/Butalbital/Caff [Fioricet 325-50-40 MG] 1 tab PO Q4H PRN 12/15/18 [History] Cyanocobalamin (Vitamin B12) [Vitamin B12] 250 mcg IM ASDIRECTED 12/15/18 [ History] Desvenlafaxine Succinate [Pristiq] 100 mg PO QAM 12/15/18 [History] Dextroamphetamine/Amphetamine [Adderall 20 mg Tablet] 20 mg PO BEDTIME 12/15/18 [History] Dextroamphetamine/Amphetamine [Adderall] 30 mg PO QAM 12/15/18 [History] Dihydroergotamine [Dhe 45] 1 spray NASBOTH ASDIRECTED PRN 12/15/18 [History] Folate 4 mg PO QAM 12/15/18 [History] Linaclotide [Linzess] 145 mg PO QAM 12/15/18 [History] Naratriptan HCl 2.5 mg PO DAILY PRN 12/15/18 [History] Pregabalin [Lyrica] 225 mg PO BID 12/15/18 [History] oxyCODONE 5 mg PO Q6H PRN 12/15/18 [History] Past Medical History - Past Health History Medical/Surgical History: Denies Medical/Surgical History HEENT History: Reports: Other (See Below) Other HEENT History: wears glasses/contacts, has lower partial removable denture Cardiovascular History: Reports: Heart Murmur, Hypertension Other Cardiovascular History: has an ECHO scheduled 12-28-18 Respiratory History: Reports: None Gastrointestinal History: Reports: Irritable Bowel Syndrome, PUD Genitourinary History: Reports: Urinary Incontinence 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 History: Reports: 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, , Spontaneous Musculoskeletal History: Reports: None Neurological History: Reports: Migraines Other Neuro History: chronic migraines Psychiatric History: Reports: Anxiety, Depression Endocrine/Metabolic History: Reports: None Hematologic History: Reports: None Immunologic History: Reports: None Oncologic (Cancer) History: Reports: None Dermatologic History: Reports: None - Infectious Disease History Infectious Disease History: Reports: Chicken Pox - Past Surgical History Head Surgeries/Procedures: Reports: None HEENT Surgical History: Reports: Adenoidectomy, Tonsillectomy Cardiovascular Surgical History: Reports: None Respiratory Surgical History: Reports: None GI Surgical History: Reports: Bariatric Procedure, Colon Other GI Surgeries/Procedures: Bowel Resection Female Surgical History: Reports: Breast Reduction, Section, Hysterectomy, Salpingo-Oophorectomy, Other (See Below) Other Female Surgeries/Procedures: Laparoscopy for removal of adhesions Endocrine Surgical History: Reports: None Neurological Surgical History: Reports: None Musculoskeletal Surgical History: Reports: Shoulder Surgery Other Musculoskeletal Surgeries/Procedures:: left RTCR Oncologic Surgical History: Reports: None Social & Family History - Family History Family Medical History: Noncontributory - Tobacco Use Smoking Status *Q: Never Smoker - Caffeine Use Caffeine Use: Reports: Coffee - Recreational Drug Use Recreational Drug Use: No ED ROS GENERAL - Review of Systems Review Of Systems: ROS reveals no pertinent complaints other than HPI. ED EXAM, GENERAL - Physical Exam Exam: See Below (Dictation) Course - Vital Signs Last Recorded V/S: Last Vital Signs Temp 35.9 C 06/20/19 13:33 Pulse 90 06/20/19 13:33 Resp 18 06/20/19 13:33 BP 128/95 H 06/20/19 13:33 Pulse Ox 100 06/20/19 13:33 - Orders/Labs/Meds Orders: Active Orders 24 hr Category Date Time Status Sodium Chloride 0.9% [Normal Saline] 1,000 ml Med 06/20/19 13:46 Ordered IV STAT Medication Orders Sodium Chloride (Normal Saline) 1,000 mls @ 999 mls/hr IV STAT ONE Stop: 06/20/19 14:46 Meds: Medications Generic Name Dose Route Start Last Admin Trade Name Freq PRN Reason Stop Dose Admin Sodium Chloride 1,000 mls @ 999 mls/hr 06/20/19 13:46 Normal Saline IV 06/20/19 14:46 STAT ONE Discontinued Medications Generic Name Dose Route Start Last Admin Trade Name Freq PRN Reason Stop Dose Admin Diphenhydramine HCl 50 mg 06/20/19 13:46 Benadryl IVPUSH 06/20/19 13:47 ONETIME ONE Ketorolac Tromethamine 30 mg 06/20/19 13:46 Toradol IVPUSH 06/20/19 13:47 ONETIME ONE Metoclopramide HCl 10 mg 06/20/19 13:46 Reglan IV 06/20/19 13:47 ONETIME ONE Ondansetron HCl 4 mg 06/20/19 13:46 Zofran IVPUSH 06/20/19 13:47 ONETIME ONE Departure - Departure Time of Disposition: 13:49 Disposition: Home, Self-Care 01 Condition: Good Clinical Impression: Migraine - Discharge Information Referrals: Peter Wong MD [Primary Care Provider] - Additional Instructions: The following information is given to patients seen in the emergency department who are being discharged to home. This information is to outline your options for follow-up care. We provide all patients seen in our emergency department with a follow-up referral. The need for follow-up, as well as the timing and circumstances, are variable depending upon the specifics of your emergency department visit. If you don't have a primary care physician on staff, we will provide you with a referral. We always advise you to contact your personal physician following an emergency department visit to inform them of the circumstance of the visit and for follow-up with them and/or the need for any referrals to a consulting specialist. The emergency department will also refer you to a specialist when appropriate. This referral assures that you have the opportunity for followup care with a specialist. All of these measure are taken in an effort to provide you with optimal care, which includes your followup. Under all circumstances we always encourage you to contact your private physician who remains a resource for coordinating your care. When calling for followup care, please make the office aware that this follow-up is from your recent emergency room visit. If for any reason you are refused follow-up, please contact the [facility] emergency department at and asked to speak to the emergency department charge nurse. Follow-up primary medical doctor as needed as discussed return as needed as discussed - My Orders Last 24 Hours: My Active Orders 06/20/19 13:46 Sodium Chloride 0.9% [Normal Saline] 1,000 ml IV STAT - Assessment/Plan Last 24 Hours: My Active Orders 06/20/19 13:46 Sodium Chloride 0.9% [Normal Saline] 1,000 ml IV STAT
[2019-06-20] MEDS: diphenhydrAMINE 50 MG/ML SDV IVPUSH ONE ×2 (14:14→15:04)
[2019-06-20] MEDS: Ketorolac 30 MG/ML SDV IVPUSH ONE ×2 (14:15→15:05)
[2019-06-20] MEDS: Ondansetron 4 MG/2 ML SDV IVPUSH ONE ×2 (14:15→15:05)
[2019-06-20] MEDS: Metoclopramide 10 MG/2 ML SDV IV ONE ×2 (14:15→15:04)
[2019-06-20] MEDS ORDERED: diphenhydrAMINE 50 MG Cap PO ONE (15:10)
[2019-06-20] MEDS ORDERED: Ondansetron 4 MG Tab.DIS PO ONE (15:10)
[2019-06-20] MEDS ORDERED: Ketorolac 60 MG/2 ML SDV IM ONE (15:10)
[2019-06-20] MEDS ORDERED: Metoclopramide 10 MG Tab PO ONE (15:11)
[2019-06-20 16:04] VITALS: BP 124/79; PULSE 78
== END 2019-06-20 15:56 | disposition home or self-care (01) ==
LOC: MW.ED 13:18
DX: G43.909 Migraine, unspecified, not intractable, without status migrainosus (principal); I10 Essential (primary) hypertension; F32.9 Major depressive disorder, single episode, unspecified; F41.9 Anxiety disorder, unspecified; Z79.899 Other long term (current) drug therapy; Z91.030 Bee allergy status
CPT/HCPCS: 96372; 99283; A9270; J1885; J1200; J2405; J2765

== ENCOUNTER 2019-10-04 22:03 | Emergency (ER) | payer BC ==
[2019-10-04 22:27] VITALS: BP 123/101; PULSE 74
[2019-10-04] MEDS ORDERED: Prochlorperazine 10 MG/2 ML SDV IVPUSH ONE (22:43)
[2019-10-04] MEDS ORDERED: Ketorolac 30 MG/ML SDV IVPUSH ONE (22:43)
[2019-10-04] MEDS ORDERED: Sodium Chloride 0.9% 10 ML Syringe FLUSH PRN (22:43)
[2019-10-04] MEDS ORDERED: Sodium Chloride 0.9% 2.5 ML Syringe FLUSH PRN (22:43)
[2019-10-04] MEDS ORDERED: methylPREDNISolone Sodium Succinate 125 MG/2 ML SDV IVPUSH ONE (22:43)
[2019-10-04] MEDS ORDERED: Sodium Chloride 0.9% 1,000 ML IV ONE (22:43)
[2019-10-04] MEDS ORDERED: diphenhydrAMINE 50 MG/ML SDV IVPUSH ONE (22:44)
--- NOTE | 2019-10-04 22:46 | EDM.PDOC ---
ED HPI GENERAL MEDICAL PROBLEM - General Chief Complaint: Headache Stated Complaint: MIGRAINE Time Seen by Provider: 10/04/19 22:36 - History of Present Illness INITIAL COMMENTS - FREE TEXT/NARRATIVE: HISTORY AND PHYSICAL: History of present illness: The patient is a 43-year-old female who follows with our neurologist Dr. Reyes and has a longstanding history of migraines and has migraines every day but she will get exacerbations of them and she is currently in 1 that started early this evening. She said she had another bad migraine 2 days ago but she is never without migraines. She tried the medications that she has at home including Fioricet DHE spray Zofran and Benadryl but she is here for medications. She denies that there is anything new or different about this migraine and she says that she has not had any trauma to her head and she has no other systemic complaints such as fever chills abdominal pain chest pain or shortness of breath. She has no neurovascular changes or weakness in her extremities. She is photophobic Review of systems: As per history of present illness and below otherwise all systems reviewed and negative. Past medical history: As per history of present illness and as reviewed below otherwise noncontributory. Surgical history: As per history of present illness and as reviewed below otherwise noncontributory. Social history: No reported history of drug or alcohol abuse. Family history: As per history of present illness and as reviewed below otherwise noncontributory. Physical exam: Built well-nourished female vital signs are noted by me she is nontoxic and cooperative and interactive in the room and she is photophobic HEENT: Atraumatic, normocephalic, pupils reactive, negative for conjunctival pallor or scleral icterus, mucous membranes moist, throat clear, neck supple, nontender, trachea midline. No cervical adenopathy or nuchal rigidity Lungs: Clear to auscultation, breath sounds equal bilaterally, chest nontender. Heart: S1S2, regular, negative for clicks, rubs, or JVD. Abdomen: Soft, nondistended, nontender. Negative for masses or hepatosplenomegaly. Negative for costovertebral tenderness. Pelvis: Stable nontender. Genitourinary: Deferred. Rectal: Deferred. Extremities: Atraumatic, negative for cords or calf pain. Neurovascular unremarkable. Neuro: Awake, alert, oriented. Cranial nerves II through XII unremarkable. Cerebellum unremarkable. Motor and sensory unremarkable throughout. Exam nonfocal. Diagnostics: none Therapeutics: IV fluids Compazine Benadryl Toradol Solu-Medrol morphine The patient is feeling improved and would like to go home. She is aware that I would like her to connect with Dr. Reyes and let her know that she was here in the ED and she states understanding Impression: Migraine acute on chronic Definitive disposition and diagnosis as appropriate pending reevaluation and review of above. Headache Pain Score (Numeric/FACES): 9 - Related Data Allergies Allergy/AdvReac Type Severity Reaction Status Date / Time venom-honey bee Allergy Anaphylactic Verified 10/04/19 22:20 [bee venom (honey bee)] Shock Home Meds: Home Meds traZODone 200 mg PO BEDTIME PRN 01/13/17 [History] Naratriptan HCl 2.5 mg PO DAILY PRN 12/15/18 [History] Pregabalin [Lyrica] 225 mg PO QAM 12/15/18 [History] Acetaminophen/Butalbital/Caff [Fioricet 325-50-40 MG] 0 each PO Q4H PRN [History] Cyanocobalamin/FA/Pyridoxine [Folbic Tablet] 1 tab PO DAILY 06/20/19 [History] Dextroamphetamine/Amphetamine [Adderall 10 mg Tablet] 10 mg PO QPM PRN 06/20/19 [History] Dextroamphetamine/Amphetamine [Adderall Xr 10 mg Capsule] 20 mg PO DAILY@1200 [History] Dextroamphetamine/Amphetamine [Adderall Xr 10 mg Capsule] 30 mg PO DAILY [History] Diclofenac Sodium [Voltaren] 2 gm TP QID 06/20/19 [History] LORazepam 0.5 mg PO DAILY PRN 06/20/19 [History] Linaclotide [Linzess] 290 mcg PO ACBREAKFAST 06/20/19 [History] Non-Formulary Medication [NF Drug] 1 tab PO DAILY 06/20/19 [History] Pregabalin 300 mg PO BEDTIME 06/20/19 [History] Non-Formulary Medication [NF Drug] 1 each PO DAILY 10/04/19 [History] Past Medical History - Past Health History Medical/Surgical History: Denies Medical/Surgical History HEENT History: Reports: Other (See Below) Other HEENT History: wears glasses/contacts, has lower partial removable denture Cardiovascular History: Reports: Heart Murmur, Hypertension Other Cardiovascular History: has an ECHO scheduled 12-28-18 Respiratory History: Reports: None Gastrointestinal History: Reports: Irritable Bowel Syndrome, PUD Genitourinary History: Reports: Urinary Incontinence 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: Reports: 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, , 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 Musculoskeletal History: Reports: None Neurological History: Reports: Migraines Other Neuro History: chronic migraines Psychiatric History: Reports: Anxiety, Depression Endocrine/Metabolic History: Reports: None Hematologic History: Reports: None Immunologic History: Reports: None Oncologic (Cancer) History: Reports: None Dermatologic History: Reports: None - Infectious Disease History Infectious Disease History: Reports: Chicken Pox - Past Surgical History Head Surgeries/Procedures: Reports: None HEENT Surgical History: Reports: Adenoidectomy, Tonsillectomy Cardiovascular Surgical History: Reports: None Respiratory Surgical History: Reports: None GI Surgical History: Reports: Bariatric Procedure, Colon Other GI Surgeries/Procedures: Bowel Resection Female Surgical History: Reports: Breast Reduction, Section, Hysterectomy, Salpingo-Oophorectomy, Other (See Below) Other Female Surgeries/Procedures: Laparoscopy for removal of adhesions. vaginal ablasion. rectum surgery Endocrine Surgical History: Reports: None Neurological Surgical History: Reports: None Musculoskeletal Surgical History: Reports: Shoulder Surgery Other Musculoskeletal Surgeries/Procedures:: left RTCR Oncologic Surgical History: Reports: None Social & Family History - Family History Family Medical History: Noncontributory - Tobacco Use Smoking Status *Q: Never Smoker - Caffeine Use Caffeine Use: Reports: Tea - Recreational Drug Use Recreational Drug Use: No ED ROS GENERAL - Review of Systems Review Of Systems: Comprehensive ROS is negative, except as noted in HPI. ED EXAM, GENERAL - Physical Exam Exam: See Below (See dictation) Course - Vital Signs Last Recorded V/S: Last Vital Signs Temp 36.3 C 10/04/19 22:24 Pulse 74 10/04/19 22:24 Resp 18 10/04/19 22:24 BP 123/101 H 10/04/19 22:24 Pulse Ox 100 10/04/19 22:24 - Orders/Labs/Meds Orders: Active Orders 24 hr Category Date Time Status Sodium Chloride 0.9% [Saline Flush] Med 10/04/19 22:43 Active 10 ml FLUSH ASDIRECTED PRN Sodium Chloride 0.9% [Saline Flush] Med 10/04/19 22:43 Active 2.5 ml FLUSH ASDIRECTED PRN Saline Lock Insert [OM.PC] Stat Oth 10/04/19 22:43 Ordered Medication Orders Sodium Chloride (Saline Flush) 10 ml FLUSH ASDIRECTED PRN PRN Reason: Keep Vein Open Last Admin: 10/04/19 23:07 Dose: 10 ml Sodium Chloride (Saline Flush) 2.5 ml FLUSH ASDIRECTED PRN PRN Reason: Keep Vein Open Last Admin: 10/04/19 23:08 Dose: 2.5 ml Meds: Medications Generic Name Dose Route Start Last Admin Trade Name Freq PRN Reason Stop Dose Admin Sodium Chloride 10 ml 10/04/19 22:43 10/04/19 23:07 Saline Flush FLUSH 10 ml ASDIRECTED PRN Administration Keep Vein Open Sodium Chloride 2.5 ml 10/04/19 22:43 10/04/19 23:08 Saline Flush FLUSH 2.5 ml ASDIRECTED PRN Administration Keep Vein Open Discontinued Medications Generic Name Dose Route Start Last Admin Trade Name Freq PRN Reason Stop Dose Admin Diphenhydramine HCl 50 mg 10/04/19 22:44 10/04/19 23:05 Benadryl IVPUSH 10/04/19 22:45 50 mg ONETIME ONE Administration Sodium Chloride 1,000 mls @ 999 mls/hr 10/04/19 22:43 10/04/19 22:55 Normal Saline IV 10/04/19 23:43 999 mls/hr STAT ONE Administration Ketorolac Tromethamine 30 mg 10/04/19 22:43 10/04/19 23:02 Toradol IVPUSH 10/04/19 22:44 30 mg ONETIME ONE Administration Methylprednisolone Sodium Succinate 125 mg 10/04/19 22:43 10/04/19 23:03 Solu-Medrol IVPUSH 10/04/19 22:44 125 mg ONETIME ONE Administration Morphine Sulfate 4 mg 10/04/19 23:13 10/04/19 23:29 Morphine IVPUSH 10/04/19 23:14 4 mg ONETIME ONE Administration Prochlorperazine Edisylate 10 mg 10/04/19 22:43 10/04/19 23:04 Compazine IVPUSH 10/04/19 22:44 10 mg ONETIME ONE Administration Departure - Departure Time of Disposition: 23:49 Disposition: Home, Self-Care 01 Condition: Good Clinical Impression: Migraine Qualifiers: Migraine type: unspecified Status migrainosus presence: without status migrainosus Intractability: not intractable Qualified Code(s): G43.909 - Migraine, unspecified, not intractable, without status migrainosus - Discharge Information Referrals: Peter Wong MD [Primary Care Provider] - Forms: ED Department Discharge Additional Instructions: The following information is given to patients seen in the emergency department who are being discharged to home. This information is to outline your options for follow-up care. We provide all patients seen in our emergency department with a follow-up referral. The need for follow-up, as well as the timing and circumstances, are variable depending upon the specifics of your emergency department visit. If you don't have a primary care physician on staff, we will provide you with a referral. We always advise you to contact your personal physician following an emergency department visit to inform them of the circumstance of the visit and for follow-up with them and/or the need for any referrals to a consulting specialist. The emergency department will also refer you to a specialist when appropriate. This referral assures that you have the opportunity for followup care with a specialist. All of these measure are taken in an effort to provide you with optimal care, which includes your followup. Under all circumstances we always encourage you to contact your private physician who remains a resource for coordinating your care. When calling for followup care, please make the office aware that this follow-up is from your recent emergency room visit. If for any reason you are refused follow-up, please contact the [facility] emergency department at and ask to speak to the emergency department charge nurse. [facility] [address] [place] [address], [address] [place] [address] Please hydrate and rest and use your home medications as needed. Connect with Dr. Reyes tomorrow and let her know about tonight's events and return to ER as needed and as discussed Sepsis Event Note - Evaluation Sepsis Screening Result: No Definite Risk - Focused Exam Vital Signs: Vital Signs Temp Pulse Resp BP Pulse Ox 10/04/19 22:24 36.3 C 74 18 123/101 H 100 Date Exam was Performed: 10/04/19 Time Exam was Performed: 23:49 - My Orders Last 24 Hours: My Active Orders 10/04/19 22:43 Sodium Chloride 0.9% [Saline Flush] 10 ml FLUSH ASDIRECTED PRN Sodium Chloride 0.9% [Saline Flush] 2.5 ml FLUSH ASDIRECTED PRN Saline Lock Insert [OM.PC] Stat - Assessment/Plan Last 24 Hours: My Active Orders 10/04/19 22:43 Sodium Chloride 0.9% [Saline Flush] 10 ml FLUSH ASDIRECTED PRN Sodium Chloride 0.9% [Saline Flush] 2.5 ml FLUSH ASDIRECTED PRN Saline Lock Insert [OM.PC] Stat
[2019-10-04] MEDS ORDERED: Morphine 2 MG/ML Syringe IVPUSH ONE (23:13)
== END 2019-10-05 00:02 | disposition home or self-care (01) ==
LOC: MW.ED 22:03
DX: G43.909 Migraine, unspecified, not intractable, without status migrainosus (principal)
CPT/HCPCS: 96361; 96374; 96375; 99284; J0780; J1200; J1885; J2270; J2930; J7030; 99283

== ENCOUNTER 2020-03-24 17:47 | Emergency (ER) | payer BC ==
[2020-03-24] MEDS ORDERED: Ondansetron 4 MG/2 ML SDV IVPUSH ONE (18:14)
[2020-03-24] MEDS ORDERED: Sodium Chloride 0.9% 10 ML Syringe FLUSH PRN (18:14)
[2020-03-24] MEDS ORDERED: Sodium Chloride 0.9% 2.5 ML Syringe FLUSH PRN (18:14)
[2020-03-24] MEDS ORDERED: Sodium Chloride 0.9% 1,000 ML IV SCH (18:15)
[2020-03-24] MEDS ORDERED: Metoclopramide 10 MG/2 ML SDV IVPUSH ONE (19:17)
[2020-03-24] MEDS ORDERED: Acetaminophen/HYDROcodone 325-10 MG Tab PO ONE (19:18)
[2020-03-24] MEDS ORDERED: Ketorolac 30 MG/ML SDV IVPUSH ONE (19:20)
--- NOTE | 2020-03-24 19:33 | EDM.PDOC ---
ED HPI GENERAL MEDICAL PROBLEM - General Chief Complaint: Gastrointestinal Problem Stated Complaint: MIGRAINE Time Seen by Provider: 03/24/20 19:01 - History of Present Illness INITIAL COMMENTS - FREE TEXT/NARRATIVE: History of present illness: [] Patient has 1 of her typical migraines. Her current medicine is not working. Usually when this happens she has to have additional medicines. She was nauseated with severe headache. She did not have the vestibular symptoms he sometimes has with her vestibular migraine. The patient sophisticated and weighs her migraine says she is nauseated but she does not feel dizzy weak lig htheaded or have any neurologic deficit. She does not feel like she needs admission or is dehydrated. Review of systems: As per history of present illness and below otherwise all systems reviewed and negative. Past medical history: As per history of present illness and as reviewed below otherwise noncontributory. Surgical history: As per history of present illness and as reviewed below otherwise noncontributory. Social history: No reported history of drug or alcohol abuse. Family history: As per history of present illness and as reviewed below otherwise noncontributory. Physical exam: Constitutional - well developed, well-nourished and in no acute distress HEENT - normocephalic, no evidence of trauma - external nose and mouth normal - no mass in neck and no JVD - mucosae moist EYES - full EOM, PERRL, no icterus - no evidence of inflammation, injection, or drainage Respiratory - no respiratory distress, equal bilateral expansion, lungs clear to auscultation and no abnormal lung sounds Cardiovascular - Regular Rhythm with S1 and S2 appreciated and no murmur, gallop or rub. Peripheral pulses symmetrically normal in all four extremities GI - abdomen soft without distension or organomegaly - normal bowel sounds - no guard or rebound Musculoskeletal no gross deformity of long bones or joints - no tenderness, swelling or edema Neurologic - Alert and oriented times four - CN II-XII grossly intact - motor sensory and coordination symmetrically normal Psychiatric - appropriate mood and affect with normal thought content Hematologic - No petechiae or purpura - mucosa appropriate color and sclera not pale - normal nail bed color and refill Integument - no rash or evidence of trauma - normal turgor Diagnostics: [] Therapeutics: [] Impression: [] Plan: [] Definitive disposition and diagnosis as appropriate pending reevaluation and review of above. - Related Data Allergies Allergy/AdvReac Type Severity Reaction Status Date / Time venom-honey bee Allergy Anaphylactic Verified 03/24/20 18:07 [bee venom (honey bee)] Shock Home Meds: Home Meds Hydrocodone/Acetaminophen [[place] 10-325 Tablet] 1 each PO Q6HR PRN #12 tablet 03/24/20 [Rx] Lisdexamfetamine [Vyvanse] 60 mg PO DAILY 03/24/20 [History] [place] Carbonate 300 mg PO ACBREAKFAST 03/24/20 [History] [place] Carbonate 600 mg PO BEDTIME 03/24/20 [History] Metoclopramide HCl [Reglan] 10 mg PO Q6HR PRN #20 tablet 03/24/20 [Rx] Ondansetron [Zofran] 4 mg PO ASDIRECTED 03/24/20 [History] Verapamil [[place] SR] 240 mg PO DAILY 03/24/20 [History] buPROPion [Wellbutrin SR] 150 mg PO DAILY 03/24/20 [History] traZODone HCl [Trazodone HCl] 300 mg PO BEDTIME 03/24/20 [History] Past Medical History - Past Health History Medical/Surgical History: Denies Medical/Surgical History HEENT History: Reports: Other (See Below) Other HEENT History: wears glasses/contacts, has lower partial removable denture Cardiovascular History: Reports: Heart Murmur, Hypertension Other Cardiovascular History: has an ECHO scheduled 12-28-18 Respiratory History: Reports: None Gastrointestinal History: Reports: Irritable Bowel Syndrome, PUD Genitourinary History: Reports: Urinary Incontinence 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: Reports: 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, , Spontaneous Musculoskeletal History: Reports: None Neurological History: Reports: Migraines Other Neuro History: chronic migraines Psychiatric History: Reports: Anxiety, Depression Endocrine/Metabolic History: Reports: None Hematologic History: Reports: None Immunologic History: Reports: None Oncologic (Cancer) History: Reports: None Dermatologic History: Reports: None - Infectious Disease History Infectious Disease History: Reports: None - Past Surgical History Head Surgeries/Procedures: Reports: None HEENT Surgical History: Reports: Adenoidectomy, Tonsillectomy Cardiovascular Surgical History: Reports: None Respiratory Surgical History: Reports: None GI Surgical History: Reports: Bariatric Procedure, Colon Other GI Surgeries/Procedures: Bowel Resection Female Surgical History: Reports: Breast Reduction, Section, Hysterectomy, Salpingo-Oophorectomy, Other (See Below) Other Female Surgeries/Procedures: Laparoscopy for removal of adhesions. vaginal ablasion. rectum surgery Endocrine Surgical History: Reports: None Neurological Surgical History: Reports: None Musculoskeletal Surgical History: Reports: Shoulder Surgery Other Musculoskeletal Surgeries/Procedures:: left RTCR Oncologic Surgical History: Reports: None Social & Family History - Family History Family Medical History: Noncontributory - Tobacco Use Smoking Status *Q: Never Smoker - Caffeine Use Caffeine Use: Reports: Tea - Recreational Drug Use Recreational Drug Use: No ED ROS GENERAL - Review of Systems Review Of Systems: Comprehensive ROS is negative, except as noted in HPI. ED EXAM, GENERAL - Physical Exam Exam: See Below Free Text/Narrative:: Exam is in my HPI Course - Vital Signs Last Recorded V/S: Last Vital Signs Temp 97.5 F 03/24/20 19:31 Pulse 88 03/24/20 19:31 Resp 17 03/24/20 19:31 BP 150/72 H 03/24/20 19:31 Pulse Ox 100 03/24/20 19:31 - Orders/Labs/Meds Orders: Active Orders 24 hr Category Date Time Status Sodium Chloride 0.9% [Normal Saline] 1,000 ml Med 03/24/20 18:15 Active IV ASDIRECTED Sodium Chloride 0.9% [Saline Flush] Med 03/24/20 18:14 Active 10 ml FLUSH ASDIRECTED PRN Sodium Chloride 0.9% [Saline Flush] Med 03/24/20 18:14 Active 2.5 ml FLUSH ASDIRECTED PRN Saline Lock Insert [OM.PC] Stat Oth 03/24/20 18:14 Ordered Medication Orders Sodium Chloride (Normal Saline) 1,000 mls @ 999 mls/hr IV ASDIRECTED ROMELIA Last Admin: 03/24/20 18:32 Dose: 999 mls/hr Documented by: AIDA Sodium Chloride (Saline Flush) 10 ml FLUSH ASDIRECTED PRN PRN Reason: Keep Vein Open Sodium Chloride (Saline Flush) 2.5 ml FLUSH ASDIRECTED PRN PRN Reason: Keep Vein Open Labs: Laboratory Tests 03/24/20 03/24/20 03/24/20 Range/Units 18:22 18:22 18:22 WBC 10.24 (4.0-11.0) K/uL RBC 4.20 L (4.30-5.90) M/uL Hgb 13.0 (12.0-16.0) g/dL Hct 39.9 (36.0-46.0) % MCV 95.0 (80.0-98.0) fL MCH 31.0 (27.0-32.0) pg MCHC 32.6 (31.0-37.0) g/dL RDW Std Deviation 48.1 (28.0-62.0) fl RDW Coeff of Jeanne 14 (11.0-15.0) % Plt Count 405 H (150-400) K/uL MPV 10.50 (7.40-12.00) fL Neut % (Auto) 67.7 (48.0-80.0) % Lymph % (Auto) 21.3 (16.0-40.0) % Norman % (Auto) 5.1 (0.0-15.0) % Eos % (Auto) 5.6 (0.0-7.0) % Baso % (Auto) 0.3 (0.0-1.5) % Neut # (Auto) 6.9 H (1.4-5.7) K/uL Lymph # (Auto) 2.2 (0.6-2.4) K/uL Norman # (Auto) 0.5 (0.0-0.8) K/uL Eos # (Auto) 0.6 (0.0-0.7) K/uL Baso # (Auto) 0.0 (0.0-0.1) K/uL Nucleated RBC % 0.0 /100WBC Nucleated RBCs # 0 K/uL Sodium 140 (136-145) mmol/L Potassium 3.5 (3.5-5.1) mmol/L Chloride 101 (98-107) mmol/L Carbon Dioxide 27.1 (21.0-32.0) mmol/L BUN 9 (7.0-18.0) mg/dL Creatinine 0.6 (0.6-1.0) mg/dL Est Cr Clr Drug Dosing 88.41 mL/min Estimated GFR (MDRD) > 60.0 ml/min Glucose 70 L (74-106) mg/dL Calcium 9.7 (8.5-10.1) mg/dL Total Bilirubin 0.2 (0.2-1.0) mg/dL AST 20 (15-37) IU/L ALT 30 (14-63) IU/L Alkaline Phosphatase 85 (46-116) U/L Total Protein 8.0 (6.4-8.2) g/dL Albumin 4.4 (3.4-5.0) g/dL Globulin 3.6 (2.6-4.0) g/dL Albumin/Globulin Ratio 1.2 (0.9-1.6) HCG, Qual NEGATIVE (NEG) Meds: Medications Generic Name Dose Route Start Last Admin Trade Name Freq PRN Reason Stop Dose Admin Sodium Chloride 1,000 mls @ 999 mls/hr 03/24/20 18:15 03/24/20 18:32 Normal Saline IV 999 mls/hr ASDIRECTED ROMELIA Administration Sodium Chloride 10 ml 03/24/20 18:14 Saline Flush FLUSH ASDIRECTED PRN Keep Vein Open Sodium Chloride 2.5 ml 03/24/20 18:14 Saline Flush FLUSH ASDIRECTED PRN Keep Vein Open Discontinued Medications Generic Name Dose Route Start Last Admin Trade Name Freq PRN Reason Stop Dose Admin Hydrocodone Bitart/Acetaminophen 1 tab 03/24/20 19:18 03/24/20 19:30 [place] 325-10 Mg PO 03/24/20 19:19 1 tab ONETIME ONE Administration Ketorolac Tromethamine 15 mg 03/24/20 19:20 03/24/20 19:29 Toradol IVPUSH 03/24/20 19:21 15 mg ONETIME ONE Administration Metoclopramide HCl 10 mg 03/24/20 19:17 03/24/20 19:27 Reglan IVPUSH 03/24/20 19:18 10 mg ONETIME ONE Administration Ondansetron HCl 4 mg 03/24/20 18:14 03/24/20 18:32 Zofran IVPUSH 03/24/20 18:15 4 mg ONETIME ONE Administration Departure - Departure Time of Disposition: 20:09 Disposition: Home, Self-Care 01 Clinical Impression: Migraine - Discharge Information Prescriptions: Hydrocodone/Acetaminophen [[place] 10-325 Tablet] 1 each PO Q6HR PRN #12 tablet PRN Reason: Pain Metoclopramide HCl [Reglan] 10 mg PO Q6HR PRN #20 tablet PRN Reason: Nausea Instructions: Recurrent Migraine Headache, [id number] Referrals: Peter Wong MD [Primary Care Provider] - Forms: ED Department Discharge Additional Instructions: The following information is given to patients seen in the emergency department who are being discharged to home. This information is to outline your options for follow-up care. We provide all patients seen in our emergency department with a follow-up referral. The need for follow-up, as well as the timing and circumstances, are variable depending upon the specifics of your emergency department visit. If you don't have a primary care physician on staff, we will provide you with a referral. We always advise you to contact your personal physician following an emergency department visit to inform them of the circumstance of the visit and for follow-up with them and/or the need for any referrals to a consulting sp ecialist. The emergency department will also refer you to a specialist when appropriate. This referral assures that you have the opportunity for follow-up care with a specialist. All of these measure are taken in an effort to provide you with optimal care, which includes your follow-up. Under all circumstances we always encourage you to contact your private physician who remains a resource for coordinating your care. When calling for follow-up care, please make the office aware that this follow-up is from your recent emergency room visit. If for any reason you are refused follow-up, please contact the [facility] Emergency Department at and asked to speak to the emergency department charge nurse. [facility] - Primary Care [address] [place] [id number] [address] Sepsis Event Note (ED) - Evaluation Sepsis Screening Result: No Definite Risk - Focused Exam Vital Signs: Vital Signs Temp Pulse Resp BP Pulse Ox 03/24/20 19:31 97.5 F 88 17 150/72 H 100 03/24/20 18:07 98.9 F 87 16 147/83 H 98
[2020-03-24 19:36] LABS: BLOOD UREA NITROGEN,BUN 9 mg/dL (7.0-18.0); CARBON DIOXIDE,CO2 27.1 mmol/L (21.0-32.0); CHLORIDE,CL 101 mmol/L (98-107); GLUCOSE RANDOM 70 mg/dL (74-106); POTASSIUM,K 3.5 mmol/L (3.5-5.1); SODIUM,NA 140 mmol/L (136-145)
[2020-03-24 20:57] VITALS: BP 154/82; PULSE 92
== END 2020-03-24 20:20 | disposition home or self-care (01) ==
LOC: MW.ED 17:47
DX: G43.909 Migraine, unspecified, not intractable, without status migrainosus (principal); F41.9 Anxiety disorder, unspecified; F32.9 Major depressive disorder, single episode, unspecified; I10 Essential (primary) hypertension; Z91.030 Bee allergy status; Z79.899 Other long term (current) drug therapy
CPT/HCPCS: 36415; 80053; 84703; 85025; 96374; 96375; 99283; A9270; J1885; J2405; J2765; J7030

== ENCOUNTER 2020-04-14 09:04 | Emergency (ER) | payer BC ==
[2020-04-14] MEDS ORDERED: Acetaminophen 500 MG Tab PO ONE (09:50)
[2020-04-14] MEDS ORDERED: Prochlorperazine 10 MG/2 ML SDV IVPUSH ONE ×2 (09:50→10:24)
--- NOTE | 2020-04-14 09:58 | EDM.PDOC ---
ED [facility] GENERAL MEDICAL PROBLEM - General Chief Complaint: Headache Stated Complaint: MIGRAINE Time Seen by Provider: 04/14/20 09:07 Source of Information: Reports: Patient History Limitations: Reports: No Limitations - History of Present Illness INITIAL COMMENTS - FREE TEXT/NARRATIVE: 44-year-old female the past medical history of migraines, pyelonephritis presenting with a headache. She reports a 5-day history of a coronal type headache, classic for her prior migraines. Just reports nausea and multiple associate nonbloody emesis. She is taking her prescribed butalbital and her ubogrepant without relief. She denies any neck pain, visual disturbance, difficulty speaking or swallowing, facial or extremity numbness or weakness, anticoagulation use, fever, chills. ROS: A 10-point review of systems was negative, except as noted in the HPI (or in the ROS section of this note). Past medical history: Reviewed, no additional pertinent history. Surgical history: Reviewed in system, no additional pertinent history. Social history: Reviewed in system, no additional pertinent history. Family history: Reviewed in system, no additional pertinent history. PHYSICAL EXAM Vital signs reviewed. Nursing notes reviewed. Constitutional: Awake, alert, non-distressed. Head: Normocephalic, atraumatic. Eyes: EOMI, conjunctiva normal, no discharge, no scleral icterus. Pupils 3 mm bilaterally. Ears, Nose, Throat: External ears and nose normal, moist oral mucosa. Cardiovascular: 2+ radial pulse, capillary refill less than 2 seconds. No carotid bruits. Pulmonary: normal work of breathing, no accessory muscle use. Abdomen/GI: Soft, nontender, nondistended, no guarding or rigidity, no masses. Musculoskeletal: No deformities. Integumentary: Appropriate color for ethnicity, warm, dry, no pallor or jaundice, no rash. Neurologic: Awake, alert, and oriented x3. Cranial nerves II through XII int act. No facial droop or dysarthria. No temporal artery tenderness. Supple neck with normal range of motion. No pronator drift. Normal [id number]-ynlxta and [id number]. No dysdiadochokinesia. 5/5 strength in all extremities. Sensation intact to light touch x4. Slightly unsteady gait which she states is typical with her prior migraines. Normal visual rivera, no field cuts. Able to sit, stand, and ambulate without assistance. Psychiatric: Appropriate mood and affect, normal thought process. migraine Pain Score (Numeric/FACES): 9 - Related Data Allergies Allergy/AdvReac Type Severity Reaction Status Date / Time venom-honey bee Allergy Anaphylactic Verified 04/14/20 09:32 [bee venom (honey bee)] Shock Home Meds: Home Meds Hydrocodone/Acetaminophen [[place] 10-325 Tablet] 1 each PO Q6HR PRN #12 tablet 03/24/20 [Rx] Metoclopramide HCl [Reglan] 10 mg PO Q6HR PRN #20 tablet 03/24/20 [Rx] Ondansetron [Zofran] 4 mg PO ASDIRECTED 03/24/20 [History] buPROPion [Wellbutrin SR] 150 mg PO DAILY 03/24/20 [History] traZODone HCl [Trazodone HCl] 300 mg PO BEDTIME 03/24/20 [History] Rimegepant Sulfate [Nurtec Odt] 1 tab PO ASDIRECTED 04/14/20 [History] Ubrogepant [Ubrelvy] 50 mg PO ASDIRECTED 04/14/20 [History] Past Medical History - Past Health History Medical/Surgical History: Denies Medical/Surgical History HEENT History: Reports: Other (See Below) Other HEENT History: wears glasses/contacts, has lower partial removable denture Cardiovascular History: Reports: Heart Murmur, Hypertension Other Cardiovascular History: has an ECHO scheduled 12-28-18 Respiratory History: Reports: None Gastrointestinal History: Reports: Irritable Bowel Syndrome, PUD Genitourinary History: Reports: Urinary Incontinence 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: 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, , 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 Musculoskeletal History: Reports: None Neurological History: Reports: Migraines Other Neuro History: chronic migraines Psychiatric History: Reports: Anxiety, Depression Endocrine/Metabolic History: Reports: None Hematologic History: Reports: None Immunologic History: Reports: None Oncologic (Cancer) History: Reports: None Dermatologic History: Reports: None - Infectious Disease History Infectious Disease History: Reports: None - Past Surgical History Head Surgeries/Procedures: Reports: None HEENT Surgical History: Reports: Adenoidectomy, Tonsillectomy Cardiovascular Surgical History: Reports: None Respiratory Surgical History: Reports: None GI Surgical History: Reports: Bariatric Procedure, Colon Other GI Surgeries/Procedures: Bowel Resection Female Surgical History: Reports: Breast Reduction, Section, Hysterectomy, Salpingo-Oophorectomy, Other (See Below) Other Female Surgeries/Procedures: Laparoscopy for removal of adhesions. vaginal ablasion. rectum surgery Endocrine Surgical History: Reports: None Neurological Surgical History: Reports: None Musculoskeletal Surgical History: Reports: Shoulder Surgery Other Musculoskeletal Surgeries/Procedures:: left RTCR Oncologic Surgical History: Reports: None Social & Family History - Family History Family Medical History: Noncontributory - Caffeine Use Caffeine Use: Reports: Tea ED ROS GENERAL - Review of Systems Review Of Systems: See Below - Physical Exam Exam: See Below Course - Vital Signs Text/Narrative:: Patient hemodynamically stable, afebrile, well-appearing, looks nontoxic. Differential diagnosis includes but is not limited to: meningitis, encephalitis, subarachnoid hemorrhage, subdural hematoma, epidural hematoma, carotid artery dissection, hypertensive encephalopathy, temporal arteritis, acute glaucoma, head injury, migraine, tension headache, cluster headache, sinusitis, pseudotumor cerebri, and many others. Neuro exam reassuring. Patient states headache pattern is typical for her known chronic migraines. Low suspicion for an acute process such as intracranial hemorrhage, malignancy, subarachnoid hemorrhage, etc. No infectious symptoms, patient is afebrile. Not pursue CT imaging of the head. Symptomatic treatment with acetaminophen and IV prochlorperazine, with significant improvement. Patient is requesting to be discharged home as she is feeling better. We will have her follow-up with her primary medical clinic. She did request a refill of her opioid prescription which I declined, and explained that we do not prescribe opioid medications to treat migraines in the emergency department. Plan: Patient is stable to discharge home with outpatient primary care follow- up. Strict emergency department return precautions were provided, patient indicated understanding. All questions were answered prior to departure. Discharged in good condition. Last Recorded V/S: Last Vital Signs Temp 36.3 C 04/14/20 09:30 Pulse 78 04/14/20 10:26 Resp 18 04/14/20 10:26 BP 132/93 H 04/14/20 10:26 Pulse Ox 97 04/14/20 10:26 - Orders/Labs/Meds Meds: Medications Discontinued Medications Generic Name Dose Route Start Last Admin Trade Name [place] PRN Reason Stop Dose Admin Acetaminophen 1,000 mg 04/14/20 09:50 04/14/20 09:58 Tylenol Extra Strength PO 04/14/20 09:51 1,000 mg ONETIME ONE Administration Prochlorperazine Edisylate 5 mg 04/14/20 09:50 04/14/20 09:58 Compazine IVPUSH 04/14/20 09:51 5 mg ONETIME ONE Administration Prochlorperazine Edisylate 5 mg 04/14/20 10:24 04/14/20 10:25 Compazine IVPUSH 04/14/20 10:25 5 mg ONETIME ONE Administration Departure - Departure Time of Disposition: 10:30 Disposition: Home, Self-Care 01 Condition: Good Clinical Impression: Migraine Qualifiers: Migraine type: unspecified Status migrainosus presence: with status migrainosus Intractability: not intractable Qualified Code(s): G43.901 - Migraine, unspecified, not intractable, with status migrainosus - Discharge Information *PRESCRIPTION DRUG MONITORING PROGRAM REVIEWED*: Not Applicable *COPY OF PRESCRIPTION DRUG MONITORING REPORT IN PATIENT ADRIAN: Not Applicable Instructions: Migraine Headache Referrals: Kamilah Russell [Primary Care Provider] - 1 Week (For reevaluation.) Forms: ED Department Discharge Additional Instructions: Thank you for choosing the [facility] emergency department in [place] for your medical needs today. It was a pleasure caring for you. You were seen in the emergency department for a migraine headache. I am glad you are feeling better after your medications. We are going to discharge you home. You should follow-up with your primary medical doctor or a neurologist in the next week for reevaluation. Continue taking your prescribed medications as directed by your doctor. It is not our practice to treat migraine headaches with opioid medications such as morphine, oxycodone, OxyContin, or hydrocodone, etc. in the emergency department and both the [place] [employer] and the [employer] also do not support this treatment strategy, so we are not able to refill any controlled opioid medications to be used to treat migraine headaches. Please return the emergency department immediately if your symptoms worsen or if you feel worse. The following information is given to patients seen in the emergency department who are being discharged. This information is to outline your options for follow-up care. We provide all patients seen in our emergency department with a follow-up referral. The need for follow-up, as well as the timing and circumstances, are variable depending upon the specifics of your emergency department visit. If you don't have a primary care physician on staff, we will provide you with a referral. We always advise you to contact your personal physician following an emergency department visit to inform them of the circumstance of the visit and for follow-up with them and/or the need for any referrals to a consulting specialist. The emergency department will also refer you to a specialist when appropriate. This referral assures that you have the opportunity for follow-up care with a specialist. All of these measure are taken in an effort to provide you with optimal care, which includes your follow-up. Under all circumstances we always encourage you to contact your private physician who remains a resource for coordinating your care. When calling for follow-up care, please make the office aware that this follow-up is from your recent emergency room visit. If for any reason you are refused follow-up, please contact the [facility] Emergency Department at and asked to speak to the emergency department charge nurse. If you do not have a primary care physician that is caring for you, you can contact these clinics below to set up an appointment to establish care: [facility] - Primary Care [address] [place] [address] [facility] [address] [place] [address] Sepsis Event Note (ED) - Evaluation Sepsis Screening Result: No Definite Risk - Focused Exam Vital Signs: Vital Signs Temp Pulse Resp BP Pulse Ox 04/14/20 10:26 78 18 132/93 H 97 04/14/20 09:30 36.3 C 91 16 121/96 H 96
[2020-04-14 10:40] VITALS: BP 141/89; PULSE 88
== END 2020-04-14 10:40 | disposition home or self-care (01) ==
LOC: MW.ED 09:04
DX: G43.901 Migraine, unspecified, not intractable, with status migrainosus (principal); I10 Essential (primary) hypertension; F41.9 Anxiety disorder, unspecified; F32.9 Major depressive disorder, single episode, unspecified; Z91.030 Bee allergy status; Z79.899 Other long term (current) drug therapy
CPT/HCPCS: 96374; 99283; A9270; J0780

== ENCOUNTER 2020-05-18 16:58 | Emergency (ER) | payer BC | END 2020-05-18 17:10 | disposition left against medical advice (07) | LOC: MW.ED 16:58 | DX: Z53.21 Procedure and treatment not carried out due to patient leaving prior to being seen by health care provider (principal) ==

== ENCOUNTER 2020-06-08 18:20 | Emergency (ER) | payer BC ==
--- NOTE | 2020-06-08 18:35 | EDM.PDOC ---
ED HPI GENERAL MEDICAL PROBLEM - General Chief Complaint: Headache Stated Complaint: HEADACHE Time Seen by Provider: 06/08/20 18:20 Source of Information: Reports: Patient History Limitations: Reports: No Limitations - History of Present Illness INITIAL COMMENTS - FREE TEXT/NARRATIVE: HISTORY AND PHYSICAL: History of present illness: Patient is a 44-year-old female who presents to the emergency room with complaints of a migraine headache. She states this is day #3 of having this frontal migraine with light sensitivity, noise sensitivity, nausea and vomiting. Patient does see a neurologist for her migraines and has been on as needed medications to be used as needed. Over the past several months she has noticed that they have been less effective, did call her neurologist last week to attempt to have these medications changed, "she did not seem to be interested". States she had a limited amount of [place] previously prescribed, which helped a lot, but "no one will re-prescribe it". Patient states the migraine pattern and type is typical with her migraines and does not describe this as "the worst headache of her life". Patient denies any fever, chills, change in vision, syncope or near syncope. Denies any chest pain, back pain, shortness of breath or cough. Denies any abdominal pain, diarrhea, constipation or dysuria. Denies any chance of . Has not noted any blood in urine or stool. Patient has been eating and drinking appropriately. Review of systems: As per history of present illness and below otherwise all systems reviewed and negative. Past medical history: As per history of present illness and as reviewed below otherwise noncontributory. Surgical history: As per history of present illness and as reviewed below otherwise noncontri butory. Social history: See social history for further information Family history: As per history of present illness and as reviewed below otherwise noncontributory. Physical exam: General: Well developed and well nourished 44-year-old female. Alert and orientated x 3. Nontoxic in appearance and in no acute distress. Vital signs are stable and have been reviewed by me. Nursing notes were reviewed. HEENT: Atraumatic, normocephalic, pupils equal and reactive bilaterally, negative for conjunctival pallor or scleral icterus, mucous membranes moist, TMs normal bilaterally, throat clear, neck supple, nontender, trachea midline. No drooling or trismus noted. No meningeal signs. No hot potato voice noted. Lungs: Clear to auscultation, breath sounds equal bilaterally, chest nontender. Normal work of breathing, no accessory muscles used. Heart: S1S2, regular rate and rhythm without overt murmur Abdomen: Soft, nondistended, nontender. Negative for masses or hepatosplenomegaly. Negative for costovertebral tenderness. Skin: Intact, warm, dry. No lesions or rashes noted. Hematologic: No petechiae or purpra. Mucosa appropriate color and normal nail bed color and refill. Extremities: Atraumatic, moves all extremities per self without difficulty or deficits, negative for cords or calf pain. Neurovascular unremarkable. Neuro: Awake, alert, oriented. Cranial nerves II through XII unremarkable. Cerebellum unremarkable. Motor and sensory unremarkable throughout. Exam nonfocal. Psychiatric: Mood and affect are appropriate. Normal thought process. Answering questions appropriately. Notes: We discussed doing a head CT as she is rating her pain a 10 out of 10. She is adamant that this is not the worst headache of her life and is very typical for her usual migraines. She declines wanting any form of imaging at this time. Although pain has improved, patient states she still has some pain after the Toradol and Phenergan IM. Will give her some Tylenol as I see she took this during her last ER visit and felt improvement. She is refusing the Tylenol, stating this does not work for me. She states if she is not getting "stronger pain medication" she would like to be discharged to home. I have spoken with the patient/caregiver and discussed today's findings, in addition to providing specific details for plan of care. Reassessment at the time of disposition demonstrates that the patient is in no acute distress. The patient is stable for discharge, counseling was provided and we discussed in great detail signs and symptoms that would prompt them to return to the Emergency Department. Medication, follow up and supportive care measures were reviewed and discussed. Voices understanding and is agreeable to plan of care. Denies any further questions or concerns at this time. Diagnostics: Declines Therapeutics: IV fluid, Toradol, Phenergan IM Prescription: None Impression: Migraine Plan: 1. Today you received medication that can cause drowsiness, so do not drive for the remainder of the day. 2. You can take your prescribed migraine medications as directed. You can alternate Tylenol and/or ibuprofen as needed for pain management. 3. We encourage you to follow up with your primary care provider and/or recommended specialist in the next few days for re-evaluation and further care/management. If your symptoms should worsen, new symptoms develop or any of the signs and symptoms we discussed should arise please return to the emergency room or call 911 (if needed). Definitive disposition and diagnosis as appropriate pending reevaluation and review of above. headache Pain Score (Numeric/FACES): 10 - Related Data Allergies Allergy/AdvReac Type Severity Reaction Status Date / Time venom-honey bee Allergy Anaphylactic Verified 06/08/20 18:34 [bee venom (honey bee)] Shock Home Meds: Home Meds Hydrocodone/Acetaminophen [[place] 10-325 Tablet] 1 each PO Q6HR PRN #12 tablet 03/24/20 [Rx] Ondansetron [Zofran] 4 mg PO ASDIRECTED 03/24/20 [History] buPROPion [Wellbutrin SR] 150 mg PO DAILY 03/24/20 [History] traZODone HCl [Trazodone HCl] 300 mg PO BEDTIME 03/24/20 [History] Rimegepant Sulfate [Nurtec Odt] 75 mg PO ASDIRECTED PRN 04/14/20 [History] Ubrogepant [Ubrelvy] 50 mg PO ASDIRECTED PRN 04/14/20 [History] Past Medical History - Past Health History Medical/Surgical History: Denies Medical/Surgical History HEENT History: Reports: Other (See Below) Other HEENT History: wears glasses/contacts, has lower partial removable denture Cardiovascular History: Reports: Heart Murmur, Hypertension Other Cardiovascular History: has an ECHO scheduled 12-28-18 Respiratory History: Reports: None Gastrointestinal History: Reports: Irritable Bowel Syndrome, PUD Genitourinary History: Reports: Urinary Incontinence [employer] History: Reports: 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, , Spontaneous Musculoskeletal History: Reports: None Neurological History: Reports: Migraines Other Neuro History: chronic migraines Psychiatric History: Reports: Anxiety, Depression Endocrine/Metabolic History: Reports: None Hematologic History: Reports: None Immunologic History: Reports: None Oncologic (Cancer) History: Reports: None Dermatologic History: Reports: None - Infectious Disease History Infectious Disease History: Reports: None - Past Surgical History Head Surgeries/Procedures: Reports: None HEENT Surgical History: Reports: Adenoidectomy, Tonsillectomy Cardiovascular Surgical History: Reports: None Respiratory Surgical History: Reports: None GI Surgical History: Reports: Bariatric Procedure, Colon Other GI Surgeries/Procedures: Bowel Resection Female Surgical History: Reports: Breast Reduction, Section, Hysterectomy, Salpingo-Oophorectomy, Other (See Below) Other Female Surgeries/Procedures: Laparoscopy for removal of adhesions. vaginal ablasion. rectum surgery Endocrine Surgical History: Reports: None Neurological Surgical History: Reports: None Musculoskeletal Surgical History: Reports: Shoulder Surgery Other Musculoskeletal Surgeries/Procedures:: left RTCR Oncologic Surgical History: Reports: None Social & Family History - Family History Family Medical History: Noncontributory - Caffeine Use Caffeine Use: Reports: Tea ED ROS GENERAL - Review of Systems Review Of Systems: Comprehensive ROS is negative, except as noted in HPI. - Physical Exam Exam: See Below (See dictation) Course - Vital Signs Last Recorded V/S: Last Vital Signs Temp 97.3 F 06/08/20 18:31 Pulse 83 06/08/20 18:31 Resp 17 06/08/20 18:31 BP 133/83 06/08/20 18:31 Pulse Ox 100 06/08/20 18:31 - Orders/Labs/Meds Meds: Medications Discontinued Medications Generic Name Dose Route Start Last Admin Trade Name Loreto PRN Reason Stop Dose Admin Acetaminophen 1,000 mg 06/08/20 19:22 06/08/20 19:41 Tylenol Extra Strength PO 06/08/20 19:23 Not Given ONETIME ONE Diphenhydramine HCl 25 mg 06/08/20 19:21 06/08/20 19:31 Benadryl IVPUSH 06/08/20 19:22 25 mg ONETIME ONE Administration Sodium Chloride 1,000 mls @ 999 mls/hr 06/08/20 18:43 06/08/20 18:54 Normal Saline IV 06/08/20 19:43 999 mls/hr STAT ONE Administration Ketorolac Tromethamine 30 mg 06/08/20 18:43 06/08/20 18:55 Toradol IVPUSH 06/08/20 18:44 30 mg ONETIME ONE Administration Ondansetron HCl 4 mg 06/08/20 19:21 06/08/20 19:31 Zofran IVPUSH 06/08/20 19:22 4 mg ONETIME ONE Administration Promethazine HCl 25 mg 06/08/20 18:45 06/08/20 18:58 Phenergan IM 06/08/20 18:46 25 mg ONETIME ONE Administration Departure - Departure Time of Disposition: 20:01 Disposition: Home, Self-Care 01 Clinical Impression: Migraine Qualifiers: Migraine type: unspecified Status migrainosus presence: with status migrainosus Intractability: not intractable Qualified Code(s): G43.901 - Migraine, unspecified, not intractable, with status migrainosus - Discharge Information Instructions: Migraine Headache, [id number] Referrals: Peter Wong MD [Primary Care Provider] - Forms: ED Department Discharge Additional Instructions: The following information is given to patients seen in the emergency department who are being discharged to home. This information is to outline your options for follow-up care. We provide all patients seen in our emergency department with a follow-up referral. The need for follow-up, as well as the timing and circumstances, are variable depending upon the specifics of your emergency department visit. If you don't have a primary care physician on staff, we will provide you with a referral. We always advise you to contact your personal physician following an emergency department visit to inform them of the circumstance of the visit and for follow-up with them and/or the need for any referrals to a consulting specialist. The emergency department will also refer you to a specialist when appropriate. This referral assures that you have the opportunity for follow-up care with a specialist. All of these measure are taken in an effort to provide you with optimal care, which includes your follow-up. Under all circumstances we always encourage you to contact your private physician who remains a resource for coordinating your care. When calling for follow-up care, please make the office aware that this follow-up is from your recent emergency room visit. If for any reason you are refused follow-up, please contact the [facility] Emergency Department at and asked to speak to the emergency department charge nurse. [facility] [address] [place] [id number] [facility] [address] [place] [address] Thank you for choosing the [facility] emergency department in [place] for your medical needs today. It was a pleasure caring for you. Today you were seen in the emergency department for migraine headache. 1. Today you received medication that can cause drowsiness, so do not drive for the remainder of the day. 2. You can take your prescribed migraine medications as directed. You can alternate Tylenol and/or ibuprofen as needed for pain management. 3. We encourage you to follow up with your primary care provider and/or recommended specialist in the next few days for re-evaluation and further care/management. If your symptoms should worsen, new symptoms develop or any of the signs and symptoms we discussed should arise please return to the emergency room or call 911 (if needed). Sepsis Event Note (ED) - Evaluation Sepsis Screening Result: No Definite Risk - Focused Exam Vital Signs: Vital Signs Temp Pulse Resp BP Pulse Ox 06/08/20 18:31 97.3 F 83 17 133/83 100
[2020-06-08] MEDS ORDERED: Ketorolac 30 MG/ML SDV IVPUSH ONE (18:43)
[2020-06-08] MEDS ORDERED: Sodium Chloride 0.9% 1,000 ML IV ONE (18:43)
[2020-06-08] MEDS ORDERED: Promethazine 25 MG/ML SDV IM ONE (18:45)
[2020-06-08] MEDS ORDERED: Ondansetron 4 MG/2 ML SDV IVPUSH ONE (19:21)
[2020-06-08] MEDS ORDERED: diphenhydrAMINE 50 MG/ML SDV IVPUSH ONE (19:21)
[2020-06-08] MEDS ORDERED: Acetaminophen 500 MG Tab PO ONE (19:22)
[2020-06-08 20:12] VITALS: BP 160/90; PULSE 69
== END 2020-06-08 20:12 | disposition home or self-care (01) ==
LOC: MW.ED 18:20
DX: G43.901 Migraine, unspecified, not intractable, with status migrainosus (principal); I10 Essential (primary) hypertension; F41.9 Anxiety disorder, unspecified; F32.9 Major depressive disorder, single episode, unspecified; Z91.030 Bee allergy status; Z79.899 Other long term (current) drug therapy
CPT/HCPCS: 96361; 96372; 96374; 96375; 99283; J1200; J1885; J2405; J2550; J7030

== ENCOUNTER 2021-01-06 20:09 | Emergency (ER) | payer BC ==
[2021-01-06] MEDS ORDERED: Sodium Chloride 0.9% 2.5 ML Syringe FLUSH PRN (20:41)
[2021-01-06] MEDS ORDERED: Sodium Chloride 0.9% 1,000 ML IV ONE (20:41)
[2021-01-06] MEDS ORDERED: Sodium Chloride 0.9% 10 ML Syringe FLUSH PRN (20:41)
[2021-01-06] MEDS ORDERED: LORazepam 2 MG/ML SDV IVPUSH ONE (20:41)
--- NOTE | 2021-01-06 20:52 | EDM.PDOC ---
ED HPI GENERAL MEDICAL PROBLEM - General Chief Complaint: Behavioral/Psych Stated Complaint: CHEST PAIN, DIFFICULTY BREATHING Time Seen by Provider: 01/06/21 20:30 - History of Present Illness INITIAL COMMENTS - FREE TEXT/NARRATIVE: HISTORY AND PHYSICAL: History of present illness: This is a 45-year-old female with a history significant for hypertension, migraines, depression, anxiety, status post gastric bypass surgery with a Brie-en-Y, status post multiple abdominal surgeries for gastric ulcers related to her bypass surgery, who presents to the ER today secondary to feeling anxious and having discomfort in her chest. Patient reports the symptoms are similar to her prior episodes of anxiety but today she thinks that they are more severe as they are not improving with the Ativan that she has taken. Patient reports that she feels that her anxiety has also triggered a migraine. Patient denies any recent fevers, shakes, chills, nausea, vomiting, reaction dysuria, frequency or urgency, shortness of breath, abdominal pain. Patient reports that the headache that she is having currently is typical of her prior migraine headaches. Patient denies any diaphoresis. Review of systems: As per history of present illness and below otherwise all systems reviewed and negative. Past medical history: As per history of present illness and as reviewed below otherwise noncontributory. Surgical history: As per history of present illness and as reviewed below otherwise noncontributory. Social history: No reported history of drug abuse. Family history: As per history of present illness and as reviewed below otherwise noncontributory. Physical exam: This patient was seen and evaluated during the 2019 SARS-CoV-2 novel coronavirus pandemic period. Community viral transmission is ongoing at time of this [facility] nter and the emergency department is operating under pandemic response procedures. Constitutional: Patient is oriented to person, place, and time. Appears well- developed and well-nourished. No distress. HEENT: Moist mucous membranes Head: Normocephalic and atraumatic Eyes: Right eye exhibits no discharge. Left eye exhibits no discharge. No scleral icterus Neck: Normal range of motion. No tracheal deviation present. Cardiovascular: Normal rate and regular rhythm. Pulmonary: Effort normal, no respiratory distress. Abdominal: No distention Musculoskeletal: Normal range of motion Neurologic: Alert and oriented to person, place and time. Skin: [place], warm and dry. Psychiatric: Normal mood and affect. Behavior is normal. Judgment and thought content normal. Nursing note and vital signs have been reviewed Diagnostics: EKG: As interpreted by ER physician: Nadya: Nonspecific ST-T wave abnormalities Normal axis No evidence of ST elevation DC Normal sinus rhythm heart rate of 97 Chest Xray: Normal cardiac silhouette No infiltrates or effusions identified. No PTX No evidence of acute bony fracture. As interpreted by ER MD: [employer]: [] Assessment and plan: This is a 45-year-old female with history significant for anxiety who presents ER today with signs symptoms consistent with an exacerbation of her typical anxiety attacks. Patient reports that this 1 is worse than her usual anxiety attacks because it has not been relieved with the 0.5 mg of p.o. Ativan that she took prior to arrival. 11:13 PM: Patient feels much improved shortly after receiving Ativan and was requesting to be discharged home. Patient's D-dimer was markedly elevated so after discussion with her, she has agreed to stay for CT scan of her chest. Patient CT scan reveals no evidence of PE however there are some increased interstitial markings that could be either inflammatory or infectious. Patient reports she does not have any cough or infectious symptoms. Patient reports that she has had her second coronavirus immunization already. Patient symptoms are likely secondary to pulmonary infection and will need this followed up as an outpatient. I have discussed this with the patient. Reassessment at the time of disposition demonstrates that the patient is in no acute distress. The patient has remained stable throughout the entire ED visit and is without objective evidence for acute process requiring urgent intervention or hospitalization. The patient is stable for discharge, counseling is provided as documented above, discussed symptomatic treatment and specific conditions for return. I have spoken with the patient/caregiver and discussed todays findings, in addition to providing specific details for the plan of care. Questions are answered and there is agreement with the plan. Definitive disposition and diagnosis as appropriate pending reevaluation and review of above. - Related Data Allergies Allergy/AdvReac Type Severity Reaction Status Date / Time codeine Allergy Other Verified 01/06/21 20:18 venom-honey bee Allergy Anaphylactic Verified 06/08/20 18:34 [bee venom (honey bee)] Shock Home Meds: Home Meds Hydrocodone/Acetaminophen [Ruth 10-325 Tablet] 1 each PO Q6HR PRN #12 tablet 03/24/20 [Rx] Ondansetron [Zofran] 4 mg PO ASDIRECTED 03/24/20 [History] buPROPion [Wellbutrin SR] 150 mg PO DAILY 03/24/20 [History] traZODone HCl [Trazodone HCl] 300 mg PO BEDTIME 03/24/20 [History] Rimegepant Sulfate [Nurtec Odt] 75 mg PO ASDIRECTED PRN 04/14/20 [History] Ubrogepant [Ubrelvy] 50 mg PO ASDIRECTED PRN 04/14/20 [History] Past Medical History - Past Health History Medical/Surgical History: Denies Medical/Surgical History HEENT History: Reports: Other (See Below) Other HEENT History: wears glasses/contacts, has lower partial removable denture Cardiovascular History: Reports: Heart Murmur, Hypertension Other Cardiovascular History: has an ECHO scheduled 12-28-18 Respiratory History: Reports: None Gastrointestinal History: Reports: Irritable Bowel Syndrome, PUD Genitourinary History: Reports: Urinary Incontinence 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: Reports: 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, , Spontaneous Musculoskeletal History: Reports: None Neurological History: Reports: Migraines Other Neuro History: chronic migraines Psychiatric History: Reports: Anxiety, Depression Endocrine/Metabolic History: Reports: None Hematologic History: Reports: None Immunologic History: Reports: None Oncologic (Cancer) History: Reports: None Dermatologic History: Reports: None - Infectious Disease History Infectious Disease History: Reports: None - Past Surgical History Head Surgeries/Procedures: Reports: None HEENT Surgical History: Reports: Adenoidectomy, Tonsillectomy Cardiovascular Surgical History: Reports: None Respiratory Surgical History: Reports: None GI Surgical History: Reports: Bariatric Procedure, Colon Other GI Surgeries/Procedures: Bowel Resection Female Surgical History: Reports: Breast Reduction, Section, Hysterectomy, Salpingo-Oophorectomy, Other (See Below) Other Female Surgeries/Procedures: Laparoscopy for removal of adhesions. vaginal ablasion. rectum surgery Endocrine Surgical History: Reports: None Neurological Surgical History: Reports: None Musculoskeletal Surgical History: Reports: Shoulder Surgery Other Musculoskeletal Surgeries/Procedures:: left RTCR Oncologic Surgical History: Reports: None Social & Family History - Family History Family Medical History: No Pertinent Family History - Tobacco Use Tobacco Use Status *Q: Never Tobacco User - Caffeine Use Caffeine Use: Reports: Tea - Alcohol Use Days Per Week of Alcohol Use: 7 Number of Drinks Per Day: 2 Total Drinks Per Week: 14 - Recreational Drug Use Recreational Drug Use: No ED ROS GENERAL - Review of Systems Review Of Systems: See Below ED EXAM, GENERAL - Physical Exam Exam: See Below Course - Vital Signs Last Recorded V/S: Last Vital Signs Temp 97.1 F 01/06/21 20:15 Pulse 96 01/06/21 22:17 Resp 18 01/06/21 22:17 BP 150/91 H 01/06/21 22:17 Pulse Ox 96 01/06/21 22:17 - Orders/Labs/Meds Orders: Active Orders 24 hr Category Date Time Status EKG Documentation Completion [RC] STAT Care 01/06/21 20:24 Active Sodium Chloride 0.9% [Saline Flush] Med 01/06/21 20:41 Active 10 ml FLUSH ASDIRECTED PRN Sodium Chloride 0.9% [Saline Flush] Med 01/06/21 20:41 Active 2.5 ml FLUSH ASDIRECTED PRN Saline Lock Insert [OM.PC] Stat Oth 01/06/21 20:41 Ordered Medication Orders Sodium Chloride (Sodium Chloride 0.9% 10 Ml Syringe) 10 ml FLUSH ASDIRECTED PRN PRN Reason: Keep Vein Open Last Admin: 01/06/21 20:50 Dose: 10 ml Documented by: [email or web address] Sodium Chloride (Sodium Chloride 0.9% 2.5 Ml Syringe) 2.5 ml FLUSH ASDIRECTED PRN PRN Reason: Keep Vein Open Last Admin: 01/06/21 20:51 Dose: 2.5 ml Documented by: [email or web address] Labs: Laboratory Tests 01/06/21 01/06/21 01/06/21 Range/Units 21:08 21:08 21:08 WBC 7.36 (4.0-11.0) K/uL RBC 4.21 L (4.30-5.90) M/uL Hgb 11.0 L (12.0-16.0) g/dL Hct 35.0 L (36.0-46.0) % MCV 83.1 (80.0-98.0) fL MCH 26.1 L (27.0-32.0) pg MCHC 31.4 (31.0-37.0) g/dL RDW Std Deviation 47.2 (28.0-62.0) fl RDW Coeff of Jeanne 16 H (11.0-15.0) % Plt Count 482 H (150-400) K/uL MPV 10.90 (7.40-12.00) fL Neut % (Auto) 86.7 H (48.0-80.0) % Lymph % (Auto) 10.6 L (16.0-40.0) % [place] % (Auto) 2.6 (0.0-15.0) % Eos % (Auto) 0.0 (0.0-7.0) % Baso % (Auto) 0.1 (0.0-1.5) % Neut # (Auto) 6.4 H (1.4-5.7) K/uL Lymph # (Auto) 0.8 (0.6-2.4) K/uL [place] # (Auto) 0.2 (0.0-0.8) K/uL Eos # (Auto) 0.0 (0.0-0.7) K/uL Baso # (Auto) 0.0 (0.0-0.1) K/uL Nucleated RBC % 0.0 /100WBC Nucleated RBCs # 0 K/uL D-Dimer, Quantitative 7.07 H (0.0-0.50) mg/L FEU Sodium 136 (136-145) mmol/L Potassium 4.0 (3.5-5.1) mmol/L Chloride 102 (98-107) mmol/L Carbon Dioxide 22.6 (21.0-32.0) mmol/L BUN 18 (7.0-18.0) mg/dL Creatinine 0.8 (0.6-1.0) mg/dL Est Cr Clr Drug Dosing 65.60 mL/min Estimated GFR (MDRD) > 60.0 ml/min Glucose 142 H (74-106) mg/dL Calcium 8.9 (8.5-10.1) mg/dL Total Bilirubin 0.3 (0.2-1.0) mg/dL AST 13 L (15-37) IU/L ALT 20 (14-63) IU/L Alkaline Phosphatase 138 H (46-116) U/L Troponin I < 0.050 (0.000-0.056) ng/mL Total Protein 7.5 (6.4-8.2) g/dL Albumin 3.7 (3.4-5.0) g/dL Globulin 3.8 (2.6-4.0) g/dL Albumin/Globulin Ratio 1.0 (0.9-1.6) Meds: Medications Generic Name Dose Route Start Last Admin Trade Name Freq PRN Reason Stop Dose Admin Sodium Chloride 10 ml 01/06/21 20:41 01/06/21 20:50 Sodium Chloride 0.9% 10 Ml Syringe FLUSH 10 ml ASDIRECTED PRN Administration Keep Vein Open Sodium Chloride 2.5 ml 01/06/21 20:41 01/06/21 20:51 Sodium Chloride 0.9% 2.5 Ml Syringe FLUSH 2.5 ml ASDIRECTED PRN Administration Keep Vein Open Discontinued Medications Generic Name Dose Route Start Last Admin Trade Name Freq PRN Reason Stop Dose Admin Sodium Chloride 1,000 mls @ 999 mls/hr 01/06/21 20:41 01/06/21 20:50 Normal Saline IV 01/06/21 21:41 999 mls/hr .Bolus ONE Administration Iopamidol 100 ml 01/06/21 22:31 01/06/21 22:32 Iopamidol 755 Mg/Ml 500 Ml Multipack Bottle IVPUSH 01/06/21 22:32 100 ml ONETIME STA Administration Lorazepam 1 mg 01/06/21 20:41 01/06/21 20:50 Lorazepam 2 Mg/Ml Sdv IVPUSH 01/06/21 20:42 1 mg ONETIME ONE Administration Departure - Departure Time of Disposition: 23:14 Disposition: Home, Self-Care 01 Condition: Good Clinical Impression: Anxiety, Shortness of breath Chest pain Qualifiers: Chest pain type: unspecified Qualified Code(s): R07.9 - Chest pain, unspecified - Discharge Information Instructions: Shortness of Breath, Adult, [id number], Nonspecific Chest Pain, Adult, Managing Anxiety, Adult Referrals: Omayra Power MD [Primary Care Provider] - Forms: ED Department Discharge Additional Instructions: You were seen and evaluated in the ER today secondary to chest pain, shortness of breath, anxiety symptoms, headache. The work-up in emergency department has been normal. The CT scan of your chest does not reveal any evidence of blood clot. There is some signs of inflammation in your lungs which could be related to infection or inflammatory process. Please make sure that you follow-up with your doctor for further evaluation of this if you have any persistent symptoms. Your symptoms today appear to be most likely related to anxiety. Please make an appointment to follow-up with your doctor so that he can assist you with managing your anxiety disorder. Your images that were obtained today revealed some incidental findings that were not related to your primary complaint. Those findings do not appear emergent in nature, however, will require the attention of your family physician and further outpatient evaluation. Please follow up with your primary doctor to have these addressed. The following information is given to patients seen in the emergency department who are being discharged to home. This information is to outline your options for follow-up care. We provide all patients seen in our emergency department with a follow-up referral. The need for follow-up, as well as the timing and circumstances, are variable depending upon the specifics of your emergency department visit. If you don't have a primary care physician on staff, we will provide you with a referral. We always advise you to contact your personal physician following an emergency department visit to inform them of the circumstance of the visit and for follow-up with them and/or the need for any referrals to a consulting specialist. The emergency department will also refer you to a specialist when appropriate. This referral assures that you have the opportunity for follow-up care with a specialist. All of these measure are taken in an effort to provide you with optimal care, which includes your follow-up. Under all circumstances we always encourage you to contact your private physician who remains a resource for coordinating your care. When calling for follow-up care, please make the office aware that this follow-up is from your recent emergency room visit. If for any reason you are refused follow-up, please contact the [facility] Emergency Department at and asked to speak to the emergency department charge nurse. [facility] [address] [place] [id number] [address] [address] Sepsis Event Note (ED) - Evaluation Sepsis Screening Result: No Definite Risk - Focused Exam Vital Signs: Vital Signs Temp Pulse Resp BP Pulse Ox 01/06/21 22:17 96 18 150/91 H 96 01/06/21 20:15 97.1 F 108 H 17 157/89 H 95 - My Orders Last 24 Hours: My Active Orders 01/06/21 20:24 EKG Documentation Completion [RC] STAT 01/06/21 20:41 Sodium Chloride 0.9% [Saline Flush] 10 ml FLUSH ASDIRECTED PRN Sodium Chloride 0.9% [Saline Flush] 2.5 ml FLUSH ASDIRECTED PRN Saline Lock Insert [OM.PC] Stat - Assessment/Plan Last 24 Hours: My Active Orders 01/06/21 20:24 EKG Documentation Completion [RC] STAT 01/06/21 20:41 Sodium Chloride 0.9% [Saline Flush] 10 ml FLUSH ASDIRECTED PRN Sodium Chloride 0.9% [Saline Flush] 2.5 ml FLUSH ASDIRECTED PRN Saline Lock Insert [OM.PC] Stat
[2021-01-06 21:45] LABS: BLOOD UREA NITROGEN,BUN 18 mg/dL (7.0-18.0); CARBON DIOXIDE,CO2 22.6 mmol/L (21.0-32.0); CHLORIDE,CL 102 mmol/L (98-107); GLUCOSE RANDOM 142 mg/dL (74-106); SODIUM,NA 136 mmol/L (136-145)
--- NOTE | 2021-01-06 22:00 | CR ---
Indication: Chest pain Technique: Chest 1 view Comparison: October 09, 2020 Findings/Impression: Cardiovascular and mediastinum: Heart size and vasculature are normal in caliber and appearance. Mediastinum is within normal limits. Lungs and pleural space: Lungs are clear. No sign of infiltrate or mass. No sign of pleural effusion. No pneumothorax. Bones and soft tissues: No significant findings. Dictated by Celeste Hdz MD @ 01/06/2021 9:59:[address] Celeste Hdz @ Jan 06 2021 9:59PM
[2021-01-06] MEDS ORDERED: Iopamidol 755 MG/ML 500 ML Multipack Bottle IVPUSH STA (22:31)
--- NOTE | 2021-01-06 22:59 | CT ---
Indication: Chest pain with elevated D-dimer. Technique: Multiple contiguous axial images were obtained from the thoracic inlet through the upper abdomen after the intravenous administration of 100 milliliters Isovue 370. This exam is tailored for the evaluation of the pulmonary arteries. Please note that all CT scans at this facility use dose modulation, iterative reconstruction, and/or weight-based dosing when appropriate to reduce radiation dose to as low as reasonably achievable. Comparison: None Findings: No pulmonary embolism is identified. The aorta is normal in caliber. The heart is normal in size. No pericardial effusion is identified. No mediastinal, hilar, or axillary lymphadenopathy is identified. Postsurgical changes are identified at the GE junction. The visualized portions of the liver, spleen, adrenals, gallbladder, and kidneys are grossly normal. No intrahepatic biliary ductal dilatation is identified. No hydronephrosis is identified. Many mild/subtle patchy bilateral ground-glass opacities are identified, infectious/inflammatory in etiology. No infiltrate, pleural effusion, or pneumothorax is identified. Impression: No evidence of pulmonary embolism or aortic dissection. Mild/subtle patchy bilateral ground-glass opacities, infectious/inflammatory in etiology Please note that all CT scans at this facility use dose modulation, iterative reconstruction, and/or weight-based dosing when appropriate to reduce radiation dose to as low as reasonably achievable. Dictated by Ilana Hong MD @ 01/06/2021 10:57:[address] Ilana Hong @ Jan 06 2021 10:57PM
[2021-01-06 23:32] VITALS: BP 148/90; PULSE 90
== END 2021-01-06 23:31 | disposition home or self-care (01) ==
LOC: MW.ED 20:09
DX: F41.9 Anxiety disorder, unspecified (principal); I10 Essential (primary) hypertension; Z88.5 Allergy status to narcotic agent; Z91.030 Bee allergy status; Z79.899 Other long term (current) drug therapy
CPT/HCPCS: 36415; 71045; 71045-26; 71275; 71275-26; 80053; 84484; 85025; 85379; 93005; 93010; 96374; 99284; 99285-25; J2060; J7030; Q9967

== ENCOUNTER 2024-08-09 16:34 | Emergency (ER) | payer BC, OTHER ==
[2024-08-09 17:43] LABS: BASOPHILS ABSOLUTE AUTO 0.04 K/uL (0.00-0.20); BASOPHILS PERCENT AUTO 0.5 % (0.0-1.0); EOSINOPHILS ABSOLUTE AUTO 0.25 K/uL (0.00-0.45); EOSINOPHILS PERCENT AUTO 2.9 % (0.0-6.0); HEMATOCRIT 37.9 % (37.0-47.0); HEMOGLOBIN 12.4 g/dL (12.0-16.0); IMMATURE GRAN ABSOLUTE AUTO 0.02 K/uL (0.00-0.05); IMMATURE GRAN PERCENT AUTO 0.2 % (0.0-0.4); LYMPHOCYTES ABSOLUTE AUTO 2.15 K/uL (1.00-4.80); LYMPHOCYTES PERCENT AUTO 25.4 % (24.0-44.0); MEAN CORPUSCULAR HEMOGLOBIN 30.2 pg (28.0-32.0); MEAN CORPUSCULAR HGB CONC 32.7 g/dL (32.0-36.0); MEAN CORPUSCULAR VOLUME 92.2 fL (83.0-99.0); MONOCYTES ABSOLUTE AUTO 0.54 K/uL (0.00-0.80); MONOCYTES PERCENT AUTO 6.4 % (0.0-8.0); NEUTROPHILS ABSOLUTE AUTO 5.48 K/uL (1.80-7.70); NEUTROPHILS PERCENT AUTO 64.6 % (41.0-71.0); PLATELET COUNT,PLT 317 K/uL (150-400); RED BLOOD CELL COUNT 4.11 M/uL (4.10-5.30); WHITE BLOOD CELL COUNT,WBC 8.48 K/uL (3.9-11.3)
[2024-08-09 17:50] LABS: INR 0.95 (0.86-1.11); PTT,PARTIAL THROMBOPLSTIN TIME 29.8 SEC (23.9-30.7)
[2024-08-09 17:54] LABS: A/G RATIO 1.1 (0.9-1.6); BILIRUBIN TOTAL 0.2 mg/dL (0.2-1.0); CALCIUM 9.3 mg/dL (8.5-10.1); CARBON DIOXIDE,CO2 26.5 mmol/L (21.0-32.0); EST CRCL DRUG DOSING (CG) 50.79 mL/min; POTASSIUM,K 3.5 mmol/L (3.5-5.1); PROTEIN TOTAL,TP 7.7 g/dL (6.4-8.2)
[2024-08-09] MEDS: Sodium Chloride 0.9% 1,000 ML IV ONE (18:15)
[2024-08-09] MEDS: Prochlorperazine 10 MG/2 ML SDV IVPUSH ONE (18:15)
[2024-08-09] MEDS: Ketorolac 30 MG/ML SDV IVPUSH ONE (18:38)
[2024-08-09] MEDS: diphenhydrAMINE 50 MG/ML SDV IVPUSH ONE (18:38)
[2024-08-09 20:10] VITALS: BP 118/66; PULSE 81
== END 2024-08-09 20:09 | disposition left against medical advice (07) ==
LOC: MW.ED 16:34
DX: G43.901 Migraine, unspecified, not intractable, with status migrainosus (principal); I10 Essential (primary) hypertension; Z79.899 Other long term (current) drug therapy; Z88.5 Allergy status to narcotic agent; Z91.030 Bee allergy status; Z75.8 Other problems related to medical facilities and other health care
CPT/HCPCS: 36415; 70450; 70496; 70498; 71045; 80053; 82947; 85025; 85610; 85730; 93005; 96361; 96374; 96375; 99285; J0780; J1200; J1885; J7030; 93010